=== PATIENT | male | born 1950 | race Caucasian/White ===

== ENCOUNTER 2016-08-28 12:36 | Emergency (ER) | payer BC, MEDICARE ==
--- NOTE | 2016-08-28 14:37 | RAD ---
Indication: Cough, pneumonia. 2 views of the chest including dual energy PA views are reviewed and compared to previous exam dated October 31, 2006. Cardiomegaly is noted. Lung decker appear hyperinflated. Patchy areas of airspace disease in the right base and presumably in the left base consistent with pneumonia are noted. IMPRESSION: Patchy areas of pneumonia in the right base and possibly left lung base. These were not present previously.
[2016-08-28 18:16] VITALS: BP 127/77
--- NOTE | 2016-08-28 20:26 | ED ---
Tiffanie Wild Erika, scribed for Deondre Israel MD on 08/28/16 at 1746 . Respiratory - HPI Summary HPI Summary: Patient is a 65-year-old male presenting to the ED with a CC of cough for 3 months. He reports that he has been diagnosed with bronchitis, and has had a mostly unproductive cough since then, with worsening SOB recently. Cough is aggravated by deep breathing and talking. Patient also reports that he has intermittently had fever/chills. Patient reports that he was put on a 5 day course of Abx 2 weeks ago, which improved symptoms temporarily, but they then returned. Since the Abx, pt has noted decreased appetite and intermittent LUQ pain. Patient denies lightheadedness, dizziness, chest pain, palpitations, nausea, vomiting, diarrhea, and leg swelling. Pt states he had a flu shot 3 months ago. Patient has a Hx stroke, diabetes, and HTN. He takes 5 mg lisinopril and a daily baby aspirin. He denies Hx A Fib and hyperlipidemia. FHx alcohol abuse, diabetes. Patient denies FHx CAD. Patient lives with his , is a former smoker, and does not drink. - History of Current Complaint Chief Complaint: EDUpperRespComplaint Stated Complaint: SOB/COUGH Time Seen by Provider: 08/28/16 16:17 Hx Obtained From: Patient, Family/Education Director - Onset/Duration: Gradual Onset, Lasting Weeks - 90 days, Still Present Timing: Intermittent Episodes Lasting: Current Severity: Moderate Pain Intensity: 1 Character: Cough (Nonproductive), Dyspnea at Rest Aggravating Factor(s): Deep Breaths Alleviating Factor(s): Nothing Associated Signs and Symptoms: SOB - Allergy/Home Medications Allergies/Adverse Reactions: Allergies Allergy/AdvReac Type Severity Reaction Status Date / Time Penicillins [PCN] Allergy Hives Verified 08/28/16 12:37 PMH/Surg Hx/FS Hx/Imm Hx Endocrine/Hematology History: Reports: Hx Diabetes Cardiovascular History: Reports: Hx Hypertension Denies: Hx Hypercholesterolemia Neurological History: Reports: Other Neuro Impairments/Disorders - Stroke Infectious Disease History: No Infectious Disease History: Denies: Traveled Outside the [place] in Last 30 Days - Family History Known Family History: Positive: Diabetes, Other - alcohol abuse - Social History Lives: With Family Alcohol Use: None Hx Substance Use: No Substance Use Type: Reports: None Hx Tobacco Use: Yes Smoking Status (MU): Former Smoker Review of Systems Positive: Fever, Chills Negative: Palpitations, Chest Pain Positive: Shortness Of Breath, Cough Positive: Abdominal Pain, Other - decreased appetite. Negative: Vomiting, Diarrhea, Nausea Negative: Edema All Other Systems Reviewed And Are Negative: Yes Physical Exam - Summary Physical Exam Summary: The patient is obese in no acute distress and in no acute pain. The skin is warm and dry and skin color reflects adequate perfusion. HEENT: The head is normocephalic and atraumatic. The pupils are equal and reactive. The conjunctivae are clear and without drainage. Nares are patent and without drainage. Mouth reveals dry mucous membranes and the throat is without erythema and exudate. The external ears are intact. The ear canals are patent and without drainage. The tympanic membranes are intact. Neck is supple with full range of motion and non-tender. There are no carotid bruits. There is no neck vein distension. Respiratory: Chest is non-tender. Lungs have decreased breath sounds in the bases bilaterally. There is no wheezing or rhonchi. Cardiovascular: Heart is irregular and tachycardic. There is no murmur or rub auscultated. Pulses are symmetrical and equal. Abdomen: The abdomen is soft and non-tender. There are normal bowel sounds heard in all four quadrants and there is no organomegaly palpated. Musculoskeletal: There is no back pain noted. Extremities are non-tender with full range of motion. There is good capillary refill. There is slight pitting edema in the bilateral lower extremities. Neurological: Patient is alert and oriented to person, place and time. The patient has symmetrical motor strength in all four extremities. Cranial nerves are grossly intact. Deep tendon reflexes are symmetrical and equal in all four extremities. Psychiatric: The patient has an appropriate affect and does not exhibit any anxiety or depression. Triage Information Reviewed: Yes Vital Signs On Initial Exam: Initial Vitals Temp Pulse Resp BP Pulse Ox 97.6 F 110 18 146/84 98 08/28/16 12:37 08/28/16 12:37 08/28/16 12:37 08/28/16 12:37 08/28/16 12:37 Vital Signs Reviewed: Yes - Lori Coma Scale Coma Scale Total: 15 Diagnostics - Vital Signs Vital Signs Temp Pulse Resp BP Pulse Ox 08/28/16 15:46 74 21 96 02/24/17 15:44 150/79 08/28/16 14:14 97.5 F 106 20 143/84 99 08/28/16 12:37 97.6 F 110 18 146/84 98 - Laboratory Lab Statement: Any lab studies that have been ordered have been reviewed, and results considered in the medical decision making process. - Radiology CXR Radiology Interpretation Completed By: Radiologist - IMPRESSION: Patchy areas of pneumonia in the right base and possibly left lung base. These were not present previously. - EKG 12:44 Cardiac Rate: Tachycardia - at 114 bpm EKG Rhythm: Atrial Fibrillation - with RVR EKG Interpretation: New onset A Fib. No ST elevation. No STEMI Re-Evaluation - Re-Evaluation First Eval Re-Evaluation Time: 17:53 Comment: Pt counseled again on risks of discharge. Pt declines admission Disposition - Course Assessment/Plan: Patient is a 65 y/o M presenting to the ED with a CC of cough for the past 90 days. He did not improve with a round of Abx two weeks ago. CXR shows patchy areas of pneumonia in the right base and possibly left lung base. Pt was noted to be in A Fib with RVR in the ED, which pt states is new-onset. Patient declines admission after long discussion of risks of discharge, including stroke and . Patient and patient's state that they understand the risks, but that patient does not want to be in the hospital during the weekend. Patient will be discharged with follow up from cardiology and his PCP, and was prescribed levaquin. - Diagnoses Provider Diagnoses: New onset a-fib, Pneumonia Discharge - Discharge Plan Condition: Stable Disposition: HOME Prescriptions: Levofloxacin TAB* [Levaquin TAB*] 750 mg PO DAILY #10 tab Patient Education Materials: Pneumonia (ED), Atrial Fibrillation (ED) Referrals: Amberly Leslie MD [Medical Doctor] - Additional Instructions: Please follow up with cardiology and Dr. Mcfadden. The documentation as recorded by the Tiffanie corbin Erika accurately reflects the service I personally performed and the decisions made by me, Deondre Israel MD.
== END 2016-08-28 18:15 | disposition home or self-care (01) ==
LOC: ED 12:36
DX: I48.91 Unspecified atrial fibrillation (principal); J18.9 Pneumonia, unspecified organism; R05 Cough; R06.02 Shortness of breath; R10.9 Unspecified abdominal pain
CPT/HCPCS: 71020; 93005; 99282

== ENCOUNTER 2016-08-31 09:41 | Inpatient (IN) | payer MEDICARE, BC ==
[2016-08-31] MEDS ORDERED: Aspirin Low Dose CHEW TAB* 81 MG PO ONE (10:36)
[2016-08-31 10:54] LABS: Hematocrit 41 % (42-52); Hemoglobin 13.6 g/dl (14.0-18.0); Mean Corpuscular HGB Conc 33 g/dl (31-36); Mean Corpuscular Hemoglobin 29 pg (27-31); Mean Corpuscular Volume 87 fL (80-94); Mean Platelet Volume 9 um3 (7.4-10.4); Red Blood Count 4.69 10^6/ul (4.0-5.4); Red Cell Distribution Width 14 % (10.5-15); White Blood Count 14.4 10^3/ul (3.5-10.8)
[2016-08-31] MEDS ORDERED: Diltiazem IV* 5 MG/ML 5 ML VIAL (for loading dose/IV Push) (25 MG) IV SLOW PU ONE (11:01)
[2016-08-31] MEDS ORDERED: Albuterol/Ipratropium NEB.SOL* Albuterol 2.5 MG/Ipratropium 0.5 MG 3 ML INH ONE (11:02)
[2016-08-31 11:09] LABS: ALT 10 U/L (7-52); Albumin 3.4 g/dL (3.2-5.2); Alkaline Phosphatase 66 U/L (34-104); BUN/Creatinine Ratio 17.1 (8-20); Blood Urea Nitrogen 13 mg/dL (6-24); CO2 Carbon Dioxide 22 mmol/L (22-32); Calcium 9.9 mg/dL (8.6-10.3); Chloride 91 mmol/L (101-111); EGFR African American 132.4 (>60); EGFR Non-African American 102.9 (>60); Sodium 127 mmol/L (133-145); Total Protein 7.4 g/dL (6.4-8.9)
[2016-08-31 11:11] LABS: Troponin I 0.01 ng/mL (<0.04)
[2016-08-31 11:16] LABS: Glucose 602 mg/dL (70-100)
[2016-08-31] MEDS ORDERED: Iodixanol* (CONTRAST) 320 MG/ML 100 ML SDV IV ONE ×2 (11:18→16:21)
--- NOTE | 2016-08-31 11:21 | RAD ---
INDICATION: Chest pain. COMPARISON: Comparison is made with prior chest x-ray study from October 26, 2016. TECHNIQUE: A portable view of the chest was obtained. FINDINGS: The heart is mildly enlarged and unchanged from the prior exam. There is a small infiltrate at the right lung base which appears similar to the prior study. There is blunting of the right costophrenic angle suggestive of a small pleural effusion. IMPRESSION: SMALL RIGHT BASILAR INFILTRATE AND PLEURAL EFFUSION, UNCHANGED, RECOMMEND FOLLOW-UP CHEST X-RAYS TO RESOLUTION.
[2016-08-31] MEDS ORDERED: cefTRIAXone(*) 1 GM in NS 0.9% 50 ML* 50 ML IVPB ONE (11:26)
[2016-08-31] MEDS ORDERED: Azithromycin IV(*) 500 MG in NS 0.9% 250 ML* 250 ML IVPB ONE (11:26)
[2016-08-31] MEDS ORDERED: Insulin REGULAR(*) 1 UNITS UNIT SUBCUT ONE (11:27)
[2016-08-31 12:17] LABS: Magnesium 1.6 mg/dL (1.9-2.7)
[2016-08-31] MEDS ORDERED: Dextrose 50% Syringe 50 ML* 25 GM/50 ML SYRINGE IV PUSH PRN (12:19)
[2016-08-31] MEDS ORDERED: Magnesium Sulfate 2 GM IV* 2 GM/50 ML BAG IVPB ONE (12:24)
[2016-08-31] MEDS ORDERED: Diltiazem TAB* 30 MG PO ONE (12:26)
[2016-08-31] MEDS ORDERED: NS 0.9% 1000 ML* 1,000 ML IV ONE (12:31)
[2016-08-31] MEDS ORDERED: Insulin LISPRO* 1 UNITS UNIT SUBCUT SCH ×2 (13:00→16:30)
--- NOTE | 2016-08-31 13:25 | RAD ---
INDICATION: Chest pain. Short of breath. Evaluate for pulmonary embolus. . COMPARISON: Chest x-ray August 31, 2016 TECHNIQUE: Axial source images were obtained from the thoracic inlet to the hemidiaphragms following administration of [address] angiographic technique was utilized. Coronal and sagittal reconstructed images were acquired. CHEST FINDINGS: Neck/thyroid: The visualized neck to include the thyroid appear normal. Chest wall: There are no acute abnormalities of the bony thorax or chest wall. There is no supraclavicular, infraclavicular, or axillary lymphadenopathy. Lungs : There are indeterminate masslike lesions bilaterally. The dominant lesions are in the right infrahilar region where a centrally located parenchymal mass is noted measuring up to 3 cm. There is also left upper lobe mass measuring 2.3 cm in transverse dimension There are additional left-sided lesions which are 1 cm or smaller. The dominant lesion on the right is in the right middle lobe and measures 1.8 cm. Cardiomediastinal structures: There is no CT evidence of acute pulmonary embolic disease. There is hepatomegaly. There is a moderate-sized pericardial effusion There is no evidence of aortic aneurysm or dissection.. There is mild distal adenopathy with a 1.4 cm tracheal lymph node and additional lymph nodes approaching 1 cm. There are hilar lymph nodes measuring up to 1.2 cm. The esophagus appears normal. Pleura : Small right-sided pleural effusion. Other: Limited views the upper abdomen show a small amount of ascites and there is gastrohepatic and periportal lymphadenopathy measuring up to 2.2 cm. There is mild retrocrural lymph node enlargement. IMPRESSION: 1. No CT evidence of acute pulmonary embolic disease. 2. Multiple masslike pulmonary parenchymal lesions. Inflammatory and neoplastic etiologies are possibilities. 3. Right-sided pleural effusion 4. Mild mediastinal lymphadenopathy. 5. Cardiomegaly and pericardial effusion. 6. Infradiaphragmatic lymphadenopathy
[2016-08-31 13:31] LABS: Troponin I 0.01 ng/mL (<0.04)
[2016-08-31] MEDS ORDERED: Insulin LISPRO* 1 UNITS UNIT SUBCUT ONE (14:43)
[2016-08-31] MEDS: Insulin LISPRO* 1 UNITS UNIT SUBCUT SCH ×3 (15:27→22:03)
[2016-08-31 17:05] LABS: Troponin I 0.02 ng/mL (<0.04)
[2016-08-31 17:11] LABS: Calcium 9.5 mg/dL (8.6-10.3); EGFR African American 158.6 (>60); EGFR Non-African American 123.3 (>60); Potassium 4.4 mmol/L (3.5-5.0)
--- NOTE | 2016-08-31 17:33 | RAD ---
INDICATION: Ascites noted on CT chest exam of the same date. New onset atrial fibrillation. Uncontrolled diabetes. COMPARISON: None. TECHNIQUE: Multidetector CT images were obtained from the lung bases to the ischial tuberosities with 100 mL Visipaque 320 IV and oral contrast. Multiplanar reformation. REPORT: Large pericardial effusion and small dependent RIGHT pleural effusion are unchanged compared with the earlier exam of the same date. Proportional RIGHT basilar atelectasis. Decreased density of the liver consistent with fatty infiltration. No focal hepatic lesions or biliary dilatation. Moderately atrophic pancreas. Small volume of pericholecystic fluid without additional CT abnormality of the gallbladder. Unremarkable spleen. Small splenule approximating the caudal aspect of the spleen. Negative for CT abnormality of the upper GI, small bowel, or infra cecal appendix. Moderate diverticulosis of the sigmoid colon without findings of diverticulitis. Small volume of nonloculated diffuse ascites. Negative for free air or hernias. Postsurgical change of probable bilateral inguinal hernia repair. Thickening of the bilateral adrenal glands while nonspecific is most suspicious for hyperplasia. Small volume of pyelographic phase contrast from the earlier contrast-enhanced CT of the same date. Symmetric nephrograms and pyelograms. No suspicious focal renal lesions or hydronephrosis. Bilateral ureteral jets visualized at the urinary bladder. Macroscopic calcification at the prostate gland. Symmetric seminal vesicles. Celiac axis and emre hepatis adenopathy measuring up to 1.6 cm short axis reference axial image 20 of 94. Upper normal 1.3 cm short axis portal caval lymph node. Infrarenal LEFT periaortic 1.1 cm short axis lymph node. Atherosclerotic plaque. Negative for aortoiliac aneurysm. Physiologic distention of the IVC. Negative for retroperitoneal hematoma. Postsurgical change of L4-L5 LEFT laminectomy. Advanced L4-L5 degenerative spondylosis. No suspicious focal osseous lesions evident. IMPRESSION: 1. Large pericardial effusion and small dependent RIGHT pleural effusion are unchanged compared with the earlier exam of the same date. Proportional RIGHT basilar atelectasis. 2. Fatty obliteration of the liver. 3. Small volume of nonloculated diffuse ascites. Nonspecific small volume of pericholecystic fluid. If there is clinical concern for primary gallbladder pathology a RIGHT upper quadrant ultrasound would be suggested. 4. Thickening of the bilateral adrenal glands while nonspecific is most suspicious for hyperplasia. Consider reassessment with noncontrast CT in approximate 3 months time. 5. Mild retroperitoneal lymphadenopathy most prominent at the celiac axis and emre hepatis.
[2016-08-31] MEDS: NS 0.9% 1000 ML* 1,000 ML IV SCH (18:15)
[2016-08-31] MEDS: Diltiazem TAB* 30 MG PO SCH ×2 (18:20→23:13)
--- NOTE | 2016-08-31 20:41 | HP ---
HISTORY AND PHYSICAL:* ADDENDUM: DATE OF ADMISSION: 08/31/16 Mr. Hernández is a 65-year-old male with a history of diabetes who was diagnosed with atrial fibrillation on 08/28/16 when he came into the ED for evaluation of shortness of breath and cough. He requested to leave the emergency department without being evaluated for admission at that point. He comes back with the same complaints. Once again, he is in atrial fibrillation with rapid ventricular response. His glucose level is also 600. He is going to be admitted to a telemetry monitored bed. For further details of the patient's presentation and plan, please see history and physical dictated by Radha Oconnor NP, on 08/31/16 with which I agree. [id number]/[facility] #: [id number] ISAURA
--- NOTE | 2016-08-31 20:49 | HP ---
ATTENDING PHYSICIAN ADDENDUM NOW INCLUDED ON THIS REPORT HOSPITAL MEDICINE HISTORY AND PHYSICAL: DATE OF ADMISSION: 08/31/16 PRIMARY CARE PHYSICIAN: Dr. Deb Mcfadden. ATTENDING PHYSICIAN: Dr. Minoo Kulkarni* (dictation provided by Radha Oconnor NP) . CHIEF COMPLAINT: Shortness of breath and cough. HISTORY OF PRESENT ILLNESS: Mr. Hernández is a 65-year-old male with a past medical history of stroke 10 years ago; diabetes; on oral meds only; hypertension; new- onset AFib diagnosed on 08/28/16, who presents today to the hospital with persistent cough and shortness of breath. Mr. Hernández states that he began feeling unwell about 3 months ago. He has had cough and shortness of breath. During that time, he was diagnosed with bronchitis and started on 5- day course of antibiotics approximately 2 weeks ago. He states with antibiotics , he was feeling better until mid last week when he began to feel suddenly much more short of breath and have more significant cough. He reports that he cannot lie flat due to cough and shortness of breath and therefore, his sleep has been greatly impaired. He also reports some dizziness. He reports increasing dyspnea on exertion and finds it very difficult to walk up the stairs in his home now. On 08/28/16, the patient came to the emergency room for evaluation. At that time, he had a chest x-ray which showed concern for pneumonia and he was found to be in new onset atrial fibrillation with rapid ventricular response. The patient was counseled about the risks of leaving, but the patient felt that he would be better served going home and was discharged on Levaquin. In the intervening couple of days, Mr. Hernández states that he has continued to have shortness of breath, dyspnea on exertion, and cough, and he returned today to be reevaluated. In the emergency room, Mr. Hernández had a chest x-ray which showed a right lower lobe infiltrate persistent from previous. He has a white blood cell count of 14.4. He has hyponatremia with a sodium of 127. He has a glucose of 602. His lactic acid is 4.1, magnesium 1.6, potassium 4.1. He is noted to be in atrial fibrillation with heart rate of 130s; however, he was given IV dose of Cardizem and now, his heart rate is approximately 90. PAST MEDICAL HISTORY: 1. History of stroke 10 years ago with no residual. 2. Type 2 diabetes, non-insulin dependent. 3. Hypertension. 4. New-onset AFib, diagnosed 08/28/16. 5. Multiple back surgeries. MEDICATIONS: 1. Lisinopril 5 mg p.o. daily. 2. Aspirin 81 mg p.o. daily. 3. Metformin 1000 mg p.o. b.i.d. 4. Glipizide 10 mg p.o. b.i.d. 5. Levaquin 750 mg p.o. daily, prescribed on 08/28/16. ALLERGIES: To PENICILLIN. FAMILY HISTORY: The patient reports his mom related to pancreatic cancer and dad related to cirrhosis. SOCIAL HISTORY: The patient is a former smoker. He quit 10 years ago. He is also a former drinker, but quit approximately 30 years ago. No report of drug use. The patient lives with his who is the healthcare proxy. REVIEW OF SYSTEMS: A 14-point review of systems was completed with Mr. Hernández and all those not mentioned above were negative. PHYSICAL EXAMINATION GENERAL: Mr. Hernández is sitting up in the bed. He is in no acute distress. He is calm and cooperative to my examination. VITAL SIGNS: Heart rate 97, respiratory rate 14, O2 saturation 99% on room air , blood pressure 127/85, temperature 96.4. LUNGS: Clear to auscultation bilaterally with no accessory muscle use and good aeration. HEART: S1, S2. No murmur, rub, or gallop and regular. ABDOMEN: Soft, nontender with bowel sounds positive x4. EXTREMITIES: No cyanosis or edema. NEURO: He is alert, he is oriented x3. He moves all extremities equally. There is no facial asymmetry or focal weakness. Extraocular movements are intact. SKIN: Intact. IAGNOSTIC STUDIES/LAB DATA: WBC 14.4, hemoglobin 13.6, hematocrit 41, platelet count 424. Sodium 127, potassium 4.1, chloride 91, serum bicarbonate 22, BUN 13, creatinine 0.76, glucose 602, lactic acid 4.1, magnesium 1.6. Troponin 0.01. Chest x-ray shows small right basilar infiltrate. EKG shows atrial fibrillation with a heart rate of 140. ASSESSMENT AND PLAN: Mr. Hernández is a 65-year-old male with a past medical history of stroke 10 years ago, diabetes that is non-insulin dependent, and hypertension, who presents today to the emergency room with concern for shortness of breath and cough. He had been to the emergency room on 08/28/16 at which time he was diagnosed with pneumonia and new-onset atrial fibrillation with rapid ventricular response. He declined to stay in the hospital and returns today out of concern for persistent shortness of breath and cough. Our plan is for inpatient admission as I expect his length of stay to be greater than 2 days for the followin. Atrial fibrillation with rapid ventricular response: The patient has responded well to Cardizem intravenously. I will continue with oral Cardizem 30 mg p.o. q.6 hours with hold parameters. I have discussed the risks and benefits of anticoagulation and stroke prevention with Mr. Hernández and his . Plan to start Xarelto now. I suspect that his risk factors for atrial fibrillation are persistent bronchitis and now pneumonia. He will be further evaluated with a transthoracic echocardiogram. 2. Pneumonia: The patient has a persistent infiltrate and worsening leukocytosis. Plans for switching from Levaquin to ceftriaxone and azithromycin. In addition, the patient will have a CT scan of the chest now to rule out any alternative etiology for shortness of breath and cough including pulmonary embolism. 3. Hyperglycemia with history of type 2 diabetes: The patient states he takes his medications regularly, but then he does not take his blood sugar at home and that his hemoglobin A1c has been elevated recently. Plan to provide the patient with lispro sliding scale insulin q.4 hours until it is under better control and then, we will switch to as needed with meals. I will plan to hold metformin and glipizide during the inpatient period. Plan to check hemoglobin A1c. The patient will also have a consistent carbohydrate diet. 4. Hypertension: Plan to decrease lisinopril to 2.5 mg daily. Now, the patient will likely be on an alternate agent such as Cardizem for his atrial fibrillation. 5. DVT prophylaxis with Xarelto. 6. Code status is full code. 7. Disposition to telemetry. TIME SPENT: Approximately 60 minutes was spent on the admission of this patient , more than half time spent with the patient at the bedside reviewing the events leading up to this hospitalization, performing the physical examination, and reviewing the plan of care. RADHA OCONNOR NP ADDENDUM: DATE OF ADMISSION: 08/31/16 Mr. Hernández is a 65-year-old male with a history of diabetes who was diagnosed with atrial fibrillation on 08/28/16 when he came into the ED for evaluation of shortness of breath and cough. He requested to leave the emergency department without being evaluated for admission at that point. He comes back with the same complaints. Once again, he is in atrial fibrillation with rapid ventricular response. His glucose level is also 600. He is going to be admitted to a telemetry monitored bed. For further details of the patient's presentation and plan, please see history and physical dictated by Radha Oconnor NP, on 08/31/16 with which I agree. MINOO KULKARNI MD CC: Dr. Deb Mcfadden * [id number]/[facility] #: [id number]/[facility] #: [id number] [place]
[2016-08-31] MEDS ORDERED: Insulin GLARGINE(*) 1 UNITS UNIT SUBCUT SCH (21:00)
--- NOTE | 2016-08-31 22:14 | CONS ---
CARDIOLOGY CONSULTATION: DATE OF CONSULT: 08/31/16 INDICATION FOR CONSULTATION: Cough, shortness of breath, pericardial effusion. HISTORY OF PRESENT ILLNESS: The patient is a 65-year-old gentleman with a history of hypertension and diabetes, who was admitted to the hospital because of cough and shortness of breath. The patient states for the past 2 months or so, he has had a dry, nonproductive cough, and shortness of breath. The patient states that his cough has been present. It has been mildly bothersome to him. It has been nonproductive. The patient was seen by his primary care physician who thought he had viral bronchitis. The patient states that 5 days ago, he started having a significant increase in his shortness of breath. He said he was having shortness of breath just walking to the end of the driveway and back, which he is usually not symptomatic for him. The patient denied any orthopnea. He denied any palpitations. He denied any chest pain. Ultimately, the patient went to the emergency room to get a chest x-ray. While he was in the emergency room, he was found to have an irregular rhythm and found to be in atrial fibrillation. The patient refused admission to the hospital at that time and went home. After discussing the situation with his daughter, who is a registered nurse, the patient came back to the emergency room this morning for evaluation. The patient had a CT scan of his chest, which showed evidence of pneumonia. Also, clearly had a large circumferential pericardial effusion and significant perihilar lymphadenopathy. The patient was admitted to the hospital for his atrial fibrillation and his pericardial effusion. The patient underwent an echocardiogram which showed normal LV size and systolic function. No significant valvular abnormality. He had a tngksyoz-ag-pkmud circumferential pericardial effusion. There was no evidence of hemodynamic compromise. PAST MEDICAL HISTORY: Significant for hypertension, diabetes, CVA in 2006. OUTPATIENT MEDICATIONS: 1. Glipizide 10 mg b.i.d. 2. Lisinopril 5 mg a day. 3. Aspirin 81 mg a day. 4. Metformin 1000 mg b.i.d. ALLERGIES: PENICILLIN. FAMILY HISTORY: Mother at age 93. She had a history of carotid disease. Father had a history of alcohol abuse and of liver cirrhosis. SOCIAL HISTORY: He is . He has 2 children. He is a previous smoker. He quit in 2006. Rare alcohol intake. He works as a college sports coach. PHYSICAL EXAM: Height is 5 feet 7 inches and weight is 183 pounds. Heart rate is 97, blood pressure 103/51, respiratory rate is 14, oxygen saturation 100% on room air. Sclerae anicteric. Oropharynx is pink without erythema. Carotids are 2+ without bruits. JVD is normal. Thyroid is normal. Cardiac Exam: Distant heart sounds, S1, S2 without any murmurs, rubs, or gallops. His heart rate is irregular. PMI is normal. Lungs: Clear to auscultation bilaterally. There is no dullness to percussion. Abdomen: Soft, nontender, and nondistended with normoactive bowel sounds. There is no obvious hepatosplenomegaly. There is no tenderness to palpation. Extremities: Show 1 + edema. He has 2+ pulses throughout. The patient is awake, alert, and oriented. He moves all 4 extremities equally. DIAGNOSTIC STUDIES/LAB DATA: CBC: White count 14.4, hemoglobin 13, hematocrit 41, platelet count 424. Sodium 127, BUN 13, creatinine 0.7. AST and ALT within normal limits. BNP is 47. Total cholesterol 179, LDL 106, HDL is 53. TSH 1.03. EKG demonstrates atrial fibrillation with a heart rate of 140. IMPRESSION: This is a 65-year-old gentleman with dry nonproductive cough and increased shortness of breath. In the emergency room, the patient was found to have atrial fibrillation. The patient ultimately had a CAT scan of his chest, which showed a large circumferential pericardial effusion. The pericardial effusion does not show any evidence of tamponade on his echocardiogram nor is that present on his physical exam. For now, the major issue is the presence of the pericardial effusion. My guess is that it is a reactionary to his inflammatory process of his lungs. The patient does have a large lymph node in his chest, which could represent malignancy. Currently, the patient has no evidence of tamponade on physical exam or echocardiogram. For now, my recommendation is continue with rate control of his atrial fibrillation. The patient will be started on anticoagulation once his diagnostic workup is completed. The patient will have an evaluation by Dr. Rodriguez and may be necessary to do a biopsy either by bronchoscopy or through his abdomen because of his enlarged lymph node. I do not think, the patient needs a pericardiocentesis at this time, but he may need it for diagnostic purposes. I will continue to follow the patient during his hospitalization. CC: Dr. Deb Mcfadden; Dr. Rodriguez * [id number]/[facility] #: [id number] [facility]ITAL[facility]
--- NOTE | 2016-08-31 23:13 | CONS ---
PULMONARY CONSULTATION REPORT: DATE OF CONSULTATION: 08/31/16 CONSULTATION REQUESTED BY: Dr. Minoo Kulkarni. REASON FOR CONSULTATION: Evaluation of CT chest abnormality. CHIEF COMPLAINT: The patient admitted for evaluation of cough for 3 months. HISTORY OF PRESENT ILLNESS: The patient is a 65-year-old male, former smoker, with a history of hypertension, CVA, and diabetes. The patient was brought into the ED for evaluation of cough for 3 months. The patient was in the ED 3 days ago for the same complaints. The patient was also noted to be in AFib with RVR at that time. The patient declined any further evaluation and left AMA. The patient returned back to the ED for similar complaints yesterday. The patient was seen and examined by me at bedside earlier today. The patient reported cough over the past 3 months. The cough is dry in nature, had bronchitis prior to the cough 3 months ago. The patient also had received flu shot around the same time. The patient denies significant shortness of breath. Cough is aggravated by deep breathing and talking. He has frequent coughing spells. The patient also reports intermittent fevers and chills. The patient was treated with antibiotics as outpatient with slight improvement in symptoms and returned after he completed the course of antibiotics. The patient also noted decreased appetite and intermittent left upper quadrant pain. The patient denied chest pain, palpitations, dizziness, nausea, vomiting, diarrhea, and leg swelling. Further investigation during the current hospitalization revealed multiple pulmonary pattern lesions, largest measuring up to 3 cm in the right lung. The patient also noted to have left upper lobe mass measuring 2.3 cm and an additional left-sided lesion measuring 1.0 cm and right middle lobe lesion measuring 1.8 cm. The patient also noted to have pretracheal and hilar adenopathy. The patient also noted to have small right-sided pleural effusion. The patient also noted to have cardiomegaly and tzhpnrbd-eq-yajgg pericardial effusion without tamponade effect. The patient also noted to have enlarged lymph nodes in the gastrohepatic and periportal region. The patient had echocardiogram, which showed evidence of etletige-lt-mpqja effusion without tamponade. The patient was scheduled for abdominal CT scan. The patient also noted to have elevated white count at 14 with a left shift. The patient is also found to have elevated lactic acid at 4.4 with normal troponins. I personally reviewed CT scan of the chest performed on this admission. PAST MEDICAL HISTORY: 1. Hypertension. 2. Cerebrovascular accident. 3. Diabetes. 4. The patient is noted to be in AFib during this current admission. MEDICATIONS AT HOME: 1. Aspirin. 2. Lisinopril 5 mg. ALLERGIES: PENICILLIN. FAMILY HISTORY: Diabetes and alcohol abuse. SOCIAL HISTORY: Lives at home with family, former smoker, no alcohol or drug abuse. REVIEW OF SYSTEMS: All 14 systems reviewed and as per HPI. PHYSICAL EXAM: The patient is sitting up in chair, in no apparent distress. Vital Signs: Temperature 97.8, pulse 86 beats per minute, respiratory rate 24 per minute, O2 sat 98% on 2 L, blood pressure 103/51. HEENT: Pupils are equal and reactive to light, mucous membranes moist. Lungs: Good air entry bilaterally. Decreased breath sounds at bases, no wheezing or rhonchi. Cardiovascular: Irregular. No murmur or rubs. Distant heart sounds. Abdomen: Soft, nontender. Bowel sounds present. Musculoskeletal: Normal range of motion. Neurologic: Alert, awake, oriented x3. No focal deficits. Integumentary: No rash or bruises. DIAGNOSTIC STUDIES/LAB DATA: Hemoglobin 13.6, hematocrit 41, white count 14.4, platelet count 424. Sodium 133, potassium 4.4, chloride 97, bicarb 27, BUN 13, creatinine 0.65, glucose 288, lactate 4.4, troponin within normal limits. CT scan and echocardiogram as described above in HPI. IMPRESSION AND RECOMMENDATIONS: 65-year-old male, former smoker, with dry cough over the past 3 months, did not improve with outpatient antibiotics with evidence of patchy opacities and mass like lesions bilaterally along with lymphadenopathy, evidence of cpnqruap-cz-jnapl right pleural effusion without tamponade effect, atrial fibrillation with RVR and evidence of mediastinal and intraabdominal lymphadenopathy. Differentials include malignant process including primary lung cancer versus lymphoma versus intraabdominal malignancy versus inflammatory process versus infectious etiology. If the patient has primary lung cancer, he would be upstaged tro stage-4 if pericardial effusion is positive. He might benefit from pericardicentesis If intraabdominal pathology is found, he might benefit from CT-guided biopsy of most accessible node. If above procedures are more complicated than bronchoscopy, will schedule him for bronchoscopy and EBUS on 09/02/16. I have discussed above with Dr. Villarreal who is in agreement. Continue with antibiotics as described. Continue with O2 supplementation. Continue with bronchodilators and oxygen supplementation. Thank you for allowing me to participate in the care of your patient. Will follow up with you. [id number]/[facility] #: [id number] ISAURA
[2016-09-01] MEDS: NS 0.9% 1000 ML* 1,000 ML IV SCH (02:20)
[2016-09-01] MEDS ORDERED: Acetaminophen TAB* 325 MG PO PRN (02:25)
[2016-09-01] MEDS: oxyCODONE TAB* 5 MG TAB PO PRN ×2 (02:38→06:41)
[2016-09-01] MEDS: Insulin LISPRO* 1 UNITS UNIT SUBCUT SCH ×2 (02:38→06:12)
[2016-09-01 05:06] LABS: Hematocrit 40 % (42-52); Hemoglobin 13.2 g/dl (14.0-18.0); Mean Corpuscular HGB Conc 33 g/dl (31-36); Mean Corpuscular Hemoglobin 28 pg (27-31); Mean Corpuscular Volume 86 fL (80-94); Mean Platelet Volume 8 um3 (7.4-10.4); Red Blood Count 4.66 10^6/ul (4.0-5.4); Red Cell Distribution Width 14 % (10.5-15); White Blood Count 18.3 10^3/ul (3.5-10.8)
[2016-09-01 05:07] LABS: Comments Flag Yes
[2016-09-01 05:19] LABS: BUN/Creatinine Ratio 33.8 (8-20); Calcium 9.4 mg/dL (8.6-10.3); EGFR African American 150.5 (>60); Potassium 3.5 mmol/L (3.5-5.0)
[2016-09-01] MEDS: Diltiazem TAB* 30 MG PO SCH (05:19)
--- NOTE | 2016-09-01 08:07 | ED ---
Benitez Wild Adam, scribed for Hermes Tristan MD on 08/31/16 at 1048 . Shortness of Breath - HPI Summary HPI Summary: Pt is a 65 year old male presenting with SOB. He states that walking from the living room to the bathroom he has been gasping for air. In May 2016 he developed a dry cough which his doctor told him would probably only last 3 months. However the cough has persisted despite trying antibiotics. Over the past few days the pt has also developed the SOB with associated pain. He went to the doctor 3 days ago and was diagnosed with A Fib. He did not have a chest scan done. Pt also reports BLE edema over the past few days as well as occasional chills. He denies vomiting, diarrhea, hemoptysis. He sleeps on 1 pillow. Pt quit smoking 10 years ago. - History of Current Complaint Chief Complaint: EDDysrhythmPalp Time Seen by Provider: 08/31/16 10:16 Hx Obtained From: Patient Onset/Duration: Gradual Onset, Lasting Days, Still Present Timing: Constant Current Severity: Moderate Dyspnea At: Exertion Aggrevating Factors: Nothing Alleviating Factors: Nothing Associated Signs & Symptoms: Cough (Nonproductive), Chest Pain w/Cough, Edema - Allergy/Home Medications Allergies/Adverse Reactions: Allergies Allergy/AdvReac Type Severity Reaction Status Date / Time Penicillins [PCN] Allergy Hives Verified 08/28/16 12:37 Home Medications: Home Medications Aspirin EC Low Dose* [Ecotrin EC Low Dose*] 81 mg PO DAILY 08/31/16 [History Confirmed 08/31/16] Lisinopril TAB* [Prinivil TAB*] 5 mg PO DAILY 08/31/16 [History Confirmed ] glipiZIDE TAB.XL* [Glucotrol XL*] 10 mg PO BID 08/31/16 [History Confirmed 08/31] metFORMIN* [Glucophage*] 1,000 mg PO BID 08/31/16 [History Confirmed 08/31/16] PMH/Surg Hx/FS Hx/Imm Hx Endocrine/Hematology History: Reports: Hx Diabetes Cardiovascular History: Reports: Hx Hypertension Denies: Hx Hypercholesterolemia Neurological History: Reports: Other Neuro Impairments/Disorders - Stroke Infectious Disease History: No Infectious Disease History: Denies: Traveled Outside the [place] in Last 30 Days - Family History Known Family History: Positive: Diabetes, Other - alcohol abuse - Social History Occupation: Employed Full-time Lives: With Family - Alcohol Use: None Hx Substance Use: No Substance Use Type: Reports: None Hx Tobacco Use: Yes Smoking Status (MU): Former Smoker Review of Systems Positive: Chills. Negative: Fever Negative: Erythema Negative: Sore Throat Positive: Chest Pain Positive: Shortness Of Breath, Cough Negative: Abdominal Pain, Vomiting, Nausea Negative: dysuria, hematuria Positive: Edema. Negative: Myalgia Negative: Rash All Other Systems Reviewed And Are Negative: Yes Physical Exam - Summary Physical Exam Summary: Constitutional: Well-developed, Well-nourished, Alert. (-) Distressed Skin: Warm, Dry HENT: Normocephalic; Atraumatic Eyes: Conjunctiva normal Neck: Musculoskeletal ROM normal neck. (-) JVD, (-) Stridor, (-) Tracheal deviation Cardio: Tachycardia. Pulmonary/Chest wall: Effort normal. (-) Respiratory distress, (-) Wheezes, (-) Rales Abd: Soft, (-) Tenderness, (-) Distension, (-) Guarding, (-) Rebound Musculoskeletal: (-) Edema Lymph: (-) Cervical adenopathy Neuro: Alert, Oriented x3 Psych: Mood and affect Normal Triage Information Reviewed: Yes Vital Signs On Initial Exam: Initial Vitals Temp Pulse Resp BP Pulse Ox 96.4 F 110 16 141/88 99 08/31/16 09:47 08/31/16 09:47 08/31/16 09:47 08/31/16 09:47 08/31/16 09:47 Vital Signs Reviewed: Yes Diagnostics - Vital Signs Vital Signs Temp Pulse Resp BP Pulse Ox 08/31/16 09:47 96.4 F 110 16 141/88 99 - Laboratory Result Diagrams: 08/31/16 10:40 08/31/16 11:40 Lab Statement: Any lab studies that have been ordered have been reviewed, and results considered in the medical decision making process. - Radiology CXR Radiology Interpretation Completed By: Radiologist - IMPRESSION: SMALL RIGHT BASILAR INFILTRATE AND PLEURAL EFFUSION, UNCHANGED, RECOMMEND FOLLOW-UP CHEST X- RAYS TO RESOLUTION. - CT CHEST/THORAX CTA CT Interpretation Completed By: Radiologist - IMPRESSION: 1. No CT evidence of acute pulmonary embolic disease. 2. Multiple masslike pulmonary parenchymal lesions. Inflammatory and neoplastic etiologies are possibilities. 3. Right- sided pleural effusion 4. Mild mediastinal lymphadenopathy. 5. Cardiomegaly and pericardial effusion. 6. Infradiaphragmatic lymphadenopathy - EKG 10:06 Cardiac Rate: Tachycardia - 141 BPM EKG Rhythm: Atrial Fibrillation - Additional Comments Diagnostic Additional Comments: Glucose - 602 Lactic Acid - 4.1 Course/Dx - Diagnoses Provider Diagnoses: Atrial fibrillation with RVR, Uncontrolled diabetes Discharge - Discharge Plan Condition: Stable Disposition: ADMITTED TO [facility] documentation as recorded by the Benitez corbin Adam accurately reflects the service I personally performed and the decisions made by , Hermes Tristan MD.
[2016-09-01] MEDS ORDERED: Aspirin EC Low Dose* 81 MG TAB.EC PO SCH (09:00)
[2016-09-01] MEDS ORDERED: Rivaroxaban TAB(*) 20 MG TAB PO SCH (09:00)
[2016-09-01] MEDS ORDERED: Lisinopril TAB* 5 MG PO SCH (09:00)
[2016-09-01] MEDS ORDERED: Diltiazem CD CAP* 180 MG PO SCH (10:00)
[2016-09-01] MEDS ORDERED: Insulin LISPRO* 1 UNITS UNIT SUBCUT SCH (11:30)
[2016-09-01] MEDS ORDERED: cefTRIAXone VIAL(*) 1,000 MG in NS 0.9% 50 ML* 50 ML IVPB SCH (12:00)
[2016-09-01] MEDS ORDERED: Azithromycin IV(*) 500 MG in NS 0.9% 250 ML* 250 ML IVPB SCH (12:00)
[2016-09-01 12:46] VITALS: BP 136/88
[2016-09-01] MEDS ORDERED: Insulin GLARGINE(*) 1 UNITS UNIT SUBCUT SCH ×2 (13:00→21:00)
[2016-09-01] MEDS ORDERED: Ondansetron INJ* 2 MG/ML VIAL IV PRN (13:09)
[2016-09-01] MEDS ORDERED: Diazepam TAB(*) 5 MG PO ONE (13:45)
[2016-09-01] MEDS ORDERED: Benzonatate CAP* 100 MG PO SCH (14:00)
--- NOTE | 2016-09-01 14:20 | PN ---
Subjective Date of Service: 09/01/16 Interval History: Dry cough. Sick for months. Nausea last 2 weeks. No weight change. No bowel c/o. Not SOB. Pain L abdomen, mild. Objective Active Medications: Acetaminophen (Tylenol Tab*) 650 mg PO Q6H PRN PRN Reason: FEVER/PAIN Aspirin (Aspirin Ec Low Dose*) 81 mg PO DAILY [facility] Last Admin: 09/01/16 10:18 Dose: 81 mg Benzonatate (Tessalon Cap*) 200 mg PO TID [facility] Last Admin: 09/01/16 14:00 Dose: 200 mg Dextrose (D50w Syringe 50 Ml*) 12.5 gm IV PUSH .FOR FS < 60 - SS PRN PRN Reason: FS < 60 Diltiazem HCl (Cardizem Cd Cap*) 180 mg PO DAILY [facility] Last Admin: 09/01/16 11:25 Dose: 180 mg Ceftriaxone Sodium 1,000 mg/ (Sodium Chloride) 50 mls @ 200 mls/hr IVPB Q24H [facility] Last Admin: 09/01/16 11:26 Dose: 200 mls/hr Azithromycin 500 mg/ Sodium (Chloride) 250 mls @ 250 mls/hr IVPB Q24H [facility] Last Admin: 09/01/16 12:26 Dose: 250 mls/hr Insulin Glargine (Lantus(*)) 20 units SUBCUT Q24H [facility] Insulin Human Lispro (Humalog*) 0 units SUBCUT ACHS [facility] PRN Reason: Protocol Last Admin: 09/01/16 12:24 Dose: 8 units Lisinopril (Prinivil Tab*) 2.5 mg PO DAILY [facility] Last Admin: 09/01/16 10:18 Dose: 2.5 mg Ondansetron HCl (Zofran Inj*) 4 mg IV Q4H PRN PRN Reason: NAUSEA Oxycodone HCl (Roxycodone Tab*) 5 mg PO Q4H PRN PRN Reason: PAIN Last Admin: 09/01/16 06:41 Dose: 5 mg Vital Signs 08/31/16 08/31/16 08/31/16 14:42 14:43 14:46 Temperature Pulse Rate 93 91 Respiratory Rate Blood Pressure 135/70 (mmHg) O2 Sat by Pulse 94 99 Oximetry 08/31/16 08/31/16 08/31/16 15:00 15:30 16:00 Temperature Pulse Rate 88 90 88 Respiratory Rate Blood Pressure 143/83 144/85 138/83 (mmHg) O2 Sat by Pulse 100 100 100 Oximetry 08/31/16 08/31/16 08/31/16 18:09 18:10 19:16 Temperature Pulse Rate 118 Respiratory 18 Rate Blood Pressure 124/67 135/77 (mmHg) O2 Sat by Pulse Oximetry 08/31/16 08/31/16 08/31/16 19:45 21:05 23:51 Temperature 99.2 F 98.2 F Pulse Rate 76 54 Respiratory 16 18 16 Rate Blood Pressure 132/76 88/67 (mmHg) O2 Sat by Pulse 99 98 Oximetry 08/31/16 09/01/16 09/01/16 23:55 02:38 03:37 Temperature 98.7 F Pulse Rate 105 Respiratory 18 16 Rate Blood Pressure 110/72 130/74 (mmHg) O2 Sat by Pulse 97 Oximetry 09/01/16 09/01/16 09/01/16 04:38 06:41 07:45 Temperature 97.5 F Pulse Rate 91 Respiratory 18 16 16 Rate Blood Pressure 134/68 (mmHg) O2 Sat by Pulse 98 Oximetry 09/01/16 09/01/16 09/01/16 08:02 08:41 11:04 Temperature 97.2 F Pulse Rate 101 Respiratory 16 16 16 Rate Blood Pressure 136/88 (mmHg) O2 Sat by Pulse 99 Oximetry 09/01/16 14:00 Temperature Pulse Rate Respiratory 18 Rate Blood Pressure (mmHg) O2 Sat by Pulse Oximetry Oxygen Devices in Use Now: Nasal Cannula Appearance: Alert, sitting on the edge of his bed. In good spirits. looks comfortable. Eyes: No Scleral Icterus Ears/Nose/Mouth/Throat: Clear Oropharnyx, Mucous Membranes Moist Neck: NL Appearance and Movements; NL JVP, No Thyroid Enlargement, Masses Respiratory: Symmetrical Chest Expansion and Respiratory Effort, Clear to Auscultation, Clear to Percussion Cardiovascular: NL Sounds; No Murmurs; No JVD, RRR, No Edema, - Abdominal: NL Sounds; No Tenderness; No Distention, No Hepatosplenomegaly, - Extremities: No Edema, No Clubbing, Cyanosis, - Skin: No Rash or Ulcers, No Nodules or Sclerosis, - Neurological: Alert and Oriented x 3, NL Sensation Result Diagrams: 09/01/16 04:30 09/01/16 04:30 Assess/Plan/Problems-Billing Assessment: - Patient Problems (1) Pericardial effusion Current Visit: Yes Status: Acute Code(s): I31.3 - PERICARDIAL EFFUSION ( NONINFLAMMATORY) SNOMED Code(s): 719400172 Comment: Dr. Villarreal to do pericardiocentesis on 09/01. I asked the [facility] lab to try to get result the same day. (2) Pulmonary parenchymal mass Current Visit: Yes Status: Acute Code(s): R91.8 - OTHER NONSPECIFIC ABNORMAL FINDING OF LUNG FIELD SNOMED Code(s): 106726133 Comment: Multiple masses. Benzonate scheduled ordered. Discussed with Dr. Rodriguez. If cytology on pericardial fluid neg, will prceed with bronchoscopy. IV ceftriaxone and azithromycin for possible pulmonary infection. (3) Diabetes Current Visit: Yes Status: Acute Code(s): E11.9 - TYPE 2 DIABETES MELLITUS WITHOUT COMPLICATIONS SNOMED Code(s): 57154894 Comment: He never checks his FS at home. Diabetic education ordered. Continue Lantus and Lispro. (4) Atrial fibrillation Current Visit: Yes Status: Acute Code(s): I48.91 - UNSPECIFIED ATRIAL FIBRILLATION SNOMED Code(s): 86783924 Comment: Diltiazem CD 180 mg started 08/31. Consider anticoagulation after diagnostic wup done. (5) HTN (hypertension) Current Visit: Yes Status: Acute Code(s): I10 - ESSENTIAL (PRIMARY) HYPERTENSION SNOMED Code(s): 98768190 Comment: Continue lisinopril.
[2016-09-01] MEDS ORDERED: fentaNYL* 50 MCG/ML 2 ML VIAL (100 MCG VIAL) ONE (14:51)
[2016-09-01] MEDS ORDERED: Midazolam* 1 MG/ML 5 ML VIAL (5 MG) ONE (14:51)
[2016-09-01] MEDS ORDERED: Lidocaine 1% INJ* 10 MG/ML 30 ML SDV ONE (14:51)
[2016-09-01 16:08] LABS: Body Fluid Appearance Bloody
[2016-09-01 16:17] LABS: Body Fluid WBC 17079 /mcL
[2016-09-01 16:34] LABS: Body Fluid Reactive Lymph 2 %; Body Fluid Total Cells Counted 100
--- NOTE | 2016-09-01 16:56 | PN ---
Progress Note - Progress Note Note: Pulm consult f/u note 09/01/16. Pt seen and examined at bedside. Pt reports no change in sx. He is concerned that he could not sleep well last night. Active Medications Generic Name Dose Route Start Last Admin Trade Name Freq PRN Reason Stop Dose Admin Acetaminophen 650 mg 09/01/16 02:25 Tylenol Tab* PO Q6H PRN FEVER/PAIN Aspirin 81 mg 09/01/16 09:00 09/01/16 10:18 Aspirin Ec Low Dose* PO 81 mg DAILY JOY Administration Benzonatate 200 mg 09/01/16 14:00 09/01/16 14:00 Tessalon Cap* PO 200 mg TID JOY Administration Dextrose 12.5 gm 08/31/16 12:19 D50w Syringe 50 Ml* IV PUSH .FOR FS < 60 - SS PRN FS < 60 Diltiazem HCl 180 mg 09/01/16 10:00 09/01/16 11:25 Cardizem Cd Cap* PO 180 mg DAILY JOY Administration Ceftriaxone Sodium 1,000 mg/ 50 mls @ 200 mls/hr 09/01/16 12:00 09/01/16 11: 26 Sodium Chloride IVPB 200 mls/hr Q24H JOY Administration Azithromycin 500 mg/ Sodium 250 mls @ 250 mls/hr 09/01/16 12:00 09/01/16 12: 26 Chloride IVPB 250 mls/hr Q24H JOY Administration Insulin Glargine 20 units 09/01/16 21:00 Lantus(*) SUBCUT 2100 JOY Insulin Human Lispro 0 units 09/01/16 11:30 09/01/16 12:24 Humalog* SUBCUT 8 units ACHS JOY Administration Protocol Lisinopril 2.5 mg 09/01/16 09:00 09/01/16 10:18 Prinivil Tab* PO 2.5 mg DAILY JOY Administration Ondansetron HCl 4 mg 09/01/16 13:09 Zofran Inj* IV Q4H PRN NAUSEA Oxycodone HCl 5 mg 09/01/16 02:25 09/01/16 06:41 Roxycodone Tab* PO 5 mg Q4H PRN Administration PAIN Vital Signs Temp Pulse Resp BP Pulse Ox 97.2 F 101 18 136/88 99 09/01/16 11:04 09/01/16 11:04 09/01/16 14:00 09/01/16 11:04 09/01/16 11:04 Gen: Alert, sitting on the edge of his bed, looks comfortable. HEENT: No Scleral Icterus, Clear Oropharnyx, Mucous Membranes Moist Neck: NL Appearance and Movements; NL JVP, No Thyroid Enlargement, Masses Respiratory: Symmetrical Chest Expansion and Respiratory Effort, Clear to Auscultation, Clear to Percussion Cardiovascular: NL Sounds; No Murmurs; No JVD, RRR, No Edema Abdominal: NL Sounds; No Tenderness; No Distention, No Hepatosplenomegaly Extremities: No Edema, No Clubbing, Cyanosis Skin: No Rash or Ulcers, No Nodules or Sclerosis Neurological: Alert and Oriented x 3, NL Sensation Impression/Recommendations: Pt with pericardial effusion, mediastinal and abdomnial adenopathy, lung lesions concerning for malignancy versus lymphoma Pt had pericardiocentesis today Cytology pending If cytology negative, will schedule for EBUS on Wednesday c/w Rocephin and Azithromycin
--- NOTE | 2016-09-01 18:16 | TRS ---
TRANSFER SUMMARY: DATE OF ADMISSION: DATE OF TRANSFER: 09/01/16 HISTORY: This 65-year-old man presented with shortness of breath and cough. He had a nonproductive cough dating back about 3 months. He was diagnosed with bronchitis and had 5-day course of antibiotics about 2 weeks ago. It really helped very little. He has dyspnea on exertion. Chest x-ray showed right lobe infiltrate. CT scan of the abdomen, pelvis, and chest showed multiple pulmonary masses and some lymphadenopathy and mild enlarged pericardial effusion. As usual, the CT scan generally overestimated, it was considered moderate on the echo, but still significant. Dr. Villarreal attempted pericardiocentesis and removed some fluid that was contaminated with blood. He was not sure he was in the pericardial space at all. The cytology on the fluid he removed, however, was benign. The patient was in atrial fibrillation on arrival here. This is a new diagnosis. He responded well to diltiazem and was started on oral diltiazem. The patient is being transferred for management of his pericardial effusion and his pulmonary masses. DIAGNOSES ON TRANSFER: 1. Pericardial effusion. 2. Pulmonary parenchymal mass. 3. Diabetes. 4. Atrial fibrillation. 5. Hypertension. MEDICATIONS ON TRANSFER: 1. Acetaminophen 650 mg every 6 hours p.r.n. 2. Aspirin 81 mg daily. 3. Benzonatate 200 mg t.i.d. 4. Diltiazem CD 180 mg daily. 5. Glargine insulin 20 units daily at 9 p.m. 6. Lispro a.c. and at bedtime by sliding scale. 7. Lisinopril 2.5 mg daily. 8. Ondansetron 4 mg IV q.4 hours p.r.n. nausea. 9. Ceftriaxone 1 g IV q. 24 hours. 10. Azithromycin 500 mg IV daily. 11. Oxycodone 5 mg p.o. every 4 hours p.r.n. [id number]/[facility] #: [id number] [facility]
--- NOTE | 2016-09-01 19:03 | PN ---
Progress Note - Progress Note Note: Time spent on discharge 45 minutes.
--- NOTE | 2016-09-02 22:06 | CARD ---
DATE OF PROCEDURE: 09/01/16 - ROOM #[id number] PROCEDURE: Pericardiocentesis. INDICATION: Pericardial effusion. HISTORY: The patient is a 65-year-old gentleman, who was admitted to the hospital with cough and shortness of breath. He was found to have a large circumferential pericardial effusion. After consultation with Dr. Rodriguez, the recommendation is for the patient to undergo pericardiocentesis for cytology. PROCEDURE IN DETAIL: The patient was brought to the procedure room in a fasting state. Informed consent had been obtained prior to the procedure. All labs had been reviewed. The patient was placed in a supine position on the fluoroscopy table. The patient was placed at a 30-degree angle. The patient's subxiphoid area was prepped and draped in the usual fashion. 1% lidocaine was used for local anesthesia. Fentanyl was used for pain control. An echocardiogram obtained just before the procedure demonstrated that there was a 2-cm circumferential pericardial effusion that was 5 cm from the surface of the skin. A trocar needle was advanced under negative pressure and a fluid space was entered. A guidewire was placed and a 5-Lithuanian dilator was placed over the guidewire. Bloody fluid was removed. Fluoroscopy was done to try to confirm that the wire was in the pericardial space. A fenestrated catheter was then placed and approximately 200 cc of fluid was removed from the fenestrated tube. Ultrasound was done at the same time; however, the size of the fusion did not change at all and there was some concern that we were not in the pericardial space. The fenestrated catheter was then removed. Ultrasound was done in the subxiphoid position again under sterile condition and it was noted that there was still a 2-cm effusion anterior to the right ventricle. Again, a trocar needle was used to try to advance into the pericardial space without success. Ultimately, the decision was to stop the procedure. The patient will be transferred to a tertiary hospital for a pericardial window. The patient was stable when he left the procedure room and when he was transferred to [facility]. CC: Dr. Deb Mcfadden; Dr. Rodriguez* [id number]/[facility] #: [id number] [facility]
== END 2016-09-01 17:50 | disposition short-term general hospital (02) | DRG 315 ==
LOC: ED 09:41 → MEDTELE 11:43
PROVIDERS: ADMIT Internal Medicine; ATTEND Internal Medicine
PROC: 0W9D3ZX Drainage of Pericardial Cavity, Percutaneous Approach, Diagnostic (ICD-10-PCS; principal; 2016-09-01 14:45)
DX: I31.3 Pericardial effusion (noninflammatory) (principal); E87.1 Hypo-osmolality and hyponatremia; I48.91 Unspecified atrial fibrillation; E11.65 Type 2 diabetes mellitus with hyperglycemia; R91.8 Other nonspecific abnormal finding of lung field; I10 Essential (primary) hypertension; Z86.73 Personal history of transient ischemic attack (TIA), and cerebral infarction without residual deficits; Z79.82 Long term (current) use of aspirin; Z79.84 Long term (current) use of oral hypoglycemic drugs; Z79.899 Other long term (current) drug therapy; Z88.0 Allergy status to penicillin; Z80.0 Family history of malignant neoplasm of digestive organs; Z84.89 Family history of other specified conditions; Z87.891 Personal history of nicotine dependence
CPT/HCPCS: 33010; 36415; 71010; 71275; 74177; 80048; 80053; 82947; 83036; 83605; 83615; 83735; 83880; 84300; 84484; 85025; 87040; 87102; 87205; 88112; 89051; 93005; 93306; 93308; 94640; 96374; 99284; A9270-GY; C1769; J0456; J0696; J2250; J3010; J3475; Q9967

== ENCOUNTER 2016-09-10 22:03 | Inpatient (IN) | payer MEDICARE, BC ==
[2016-09-11 00:01] LABS: Albumin 3.2 g/dL (3.2-5.2); BUN/Creatinine Ratio 21.9 (8-20); Calcium 9.4 mg/dL (8.6-10.3); EGFR African American 138.7 (>60); EGFR Non-African American 107.8 (>60); Globulin 3.8 g/dL (2-4); Potassium 4.7 mmol/L (3.5-5.0); Total Bilirubin 0.5 mg/dL (0.2-1.0)
[2016-09-11 00:02] LABS: Troponin I 0.01 ng/mL (<0.04)
[2016-09-11] MEDS ORDERED: Insulin REGULAR(*) 1 UNITS UNIT IV PUSH ONE (00:11)
[2016-09-11 00:13] LABS: Add Diff/Slide Review? Slide Review Added; Comments Flag Yes; Hematocrit 40 % (42-52); Mean Corpuscular HGB Conc 32 g/dl (31-36); Mean Corpuscular Hemoglobin 28 pg (27-31); Mean Corpuscular Volume 88 fL (80-94); Mean Platelet Volume 8 um3 (7.4-10.4); Red Blood Count 4.61 10^6/ul (4.0-5.4); Red Cell Distribution Width 15 % (10.5-15); White Blood Count 17.7 10^3/ul (3.5-10.8)
--- NOTE | 2016-09-11 01:13 | ED ---
Benitez Wild Adam, scribed for Stu Cunningham on 09/10/16 at 2235 . Shortness of Breath - HPI Summary HPI Summary: Pt is a 65 year old male presenting with SOB since he was discharged from [facility] 5 days ago. He was referred to [facility] by Dr. Villarreal for a pericardial window because of an effusion. However he states that he continued to have SOB immediately after the operation and he does not believe it alleviated his symptoms at all. The SOB is aggravated by recumbent position; he states that when he lies down he feels like he is unable to breathe at all. Pt also presents with pedal edema and he c/o a cough that has been present for months. He denies any CP. PMHx includes CVA, DM, GI bleed, ulcer, and umbilical hernia. Pt is a former smoker. FMHx of DM and EtOH abuse. - History of Current Complaint Chief Complaint: EDShortnessOfBreath Time Seen by Provider: 09/10/16 22:27 Hx Obtained From: Patient Onset/Duration: Gradual Onset, Lasting Days, Still Present Current Severity: Moderate Dyspnea At: Rest Aggrevating Factors: Recumbent Position Alleviating Factors: Nothing Associated Signs & Symptoms: Cough (Nonproductive), Edema - Allergy/Home Medications Allergies/Adverse Reactions: Allergies Allergy/AdvReac Type Severity Reaction Status Date / Time No Known Allergies Allergy Verified 09/10/16 22:13 PMH/Surg Hx/FS Hx/Imm Hx Endocrine/Hematology History: Reports: Hx Diabetes Cardiovascular History: Reports: Hx Hypertension Denies: Hx Hypercholesterolemia GI History: Reports: Hx Gastrointestinal Bleed, Hx Ulcer, Other GI Disorders - umbilical hernia Musculoskeletal History: Reports: Other Musculoskeletal History - L4, L5 repair Sensory History: Reports: Hx Contacts or Glasses Opthamlomology History: Reports: Hx Contacts or Glasses Neurological History: Reports: Other Neuro Impairments/Disorders - Stroke - Surgical History Surgery Procedure, Year, and Place: mino, 1991 1998. hernia repair. tonsilectomy. nephrolithiasis Infectious Disease History: No Infectious Disease History: Denies: Traveled Outside the [place] in Last 30 Days - Family History Known Family History: Positive: Diabetes, Other - alcohol abuse - Social History Occupation: Employed Full-time Lives: With Family - Alcohol Use: None Hx Substance Use: No Substance Use Type: Reports: None Hx Tobacco Use: Yes Smoking Status (MU): Former Smoker Review of Systems Negative: Fever Negative: Chest Pain Positive: Shortness Of Breath, Cough Positive: Edema - Pedal All Other Systems Reviewed And Are Negative: Yes Physical Exam Triage Information Reviewed: Yes Vital Signs On Initial Exam: Initial Vitals Temp Pulse Resp BP Pulse Ox 98.4 F 110 18 111/96 99 09/10/16 22:05 09/10/16 22:05 09/10/16 22:05 09/10/16 22:05 09/10/16 22:05 Vital Signs Reviewed: Yes Appearance: Positive: Well-Appearing, No Pain Distress Skin: Positive: Warm, Skin Color Reflects Adequate Perfusion, Dry Head/Face: Positive: Normal Head/Face Inspection Eyes: Positive: EOMI, RASHIDA ENT: Positive: Normal ENT inspection Neck: Positive: Supple, Nontender Respiratory/Lung Sounds: Positive: Rales - Bilateral basilar rales Cardiovascular: Positive: Pulses are Symmetrical in both Upper and Lower Extremities, Tachycardia Abdomen Description: Positive: Nontender, Soft Bowel Sounds: Positive: Present Musculoskeletal: Positive: Strength/ROM Intact, Other - 4+ pedal edema Neurological: Positive: Normal, Sensory/Motor Intact, Alert, Oriented to Person Place, Time Diagnostics - Vital Signs Vital Signs Temp Pulse Resp BP Pulse Ox 09/10/16 22:05 98.4 F 110 18 111/96 99 - Laboratory Result Diagrams: 09/10/16 23:22 09/10/16 23:22 Lab Statement: Any lab studies that have been ordered have been reviewed, and results considered in the medical decision making process. - Radiology CXR Radiology Interpretation Completed By: ED Physician - Enlarged heart. Pleural effusion on right side. - EKG 23:17 Cardiac Rate: Tachycardia - 109 BPM EKG Rhythm: Atrial Fibrillation - With RVR - Additional Comments Diagnostic Additional Comments: Troponin I - 0.01 Course/Dx - Course Course Of Treatment: 00:29 - Patient will be admitted. Discussed with Dr. Andrews. - Diagnoses Provider Diagnoses: Dyspnea, Pericardial effusion Discharge - Discharge Plan Condition: Stable Disposition: ADMITTED TO [facility] Referrals: Deb Mcfadden MD [Primary Care Provider] - The documentation as recorded by the Benitez corbin Adam accurately reflects the service I personally performed and the decisions made by , Stu Cunningham.
--- NOTE | 2016-09-11 01:37 | HP ---
H&P (Free Text) History and Physical: PCP: Sandy Mcfadden MD Date/Time of Evaluation: 09/11/2016 0035 CC: SOB HPI: Mr Hernández is a 65YO male who was transferred from [facility] 09/01 to [facility] care of Dr Chacon for pericardial window and further evaluation of new pulmonary nodules. He was discharged last Wednesday which he, his , & daughter who is an ED nurse at another facility felt was too soon. He states he was told his SOB would improve, but hasn't. He continues to have significant BLE swelling and so called Dr Villarreal's office earlier and was told to come to the ED for admission and Dr Villarreal would see him in the AM. Work up reveals tachycardia 109-119, tachypnea 18-28, WBC 17.7k (down from 18.3) , Na 128, serum CO2 21, anion gap 17, & glucose of 412. ECG is AFIB rate 109 with new T-wave inversions in V5-6. CXR shows increased cardiomegaly compared to previous AP exam along with increased but small B pleural effusions. PMedHx CVA, no sequelae DM2 AFIB HTN chronic back pain Allergies No Known Allergies Allergy (Verified 09/10/16 22:13) Ambulatory Orders Nursing to reconcile. SocHx: former smoker quit ~10 years ago, quit alcohol ~30 years ago, no recreational drugs; lives with his ; full code status FamHx: Father passed of complications of cirrhosis. Mother passed of pancreatic CA. ROS: as above, otherwise reviewed and all were negative Constitutional: NAD, normally developed, overweight white male vitals: Vital Signs Temp 36.7 C 09/10/16 22:56 Pulse 102 09/11/16 00:01 Resp 24 09/11/16 00:30 BP 134/80 09/11/16 00:30 Pulse Ox 97 09/11/16 00:01 Intake & Output 09/10/16 09/10/16 09/11/16 11:59 23:59 11:59 Weight 83.007 kg HEENM: atraumatic; sclera/conjunctiva: non-icteric/clear; hearing: clinically intact; oropharynx: clear, mucosa moist Neck: soft tissue: non-tender; thyroid: normal Pulmonary: clear to auscultation bilaterally, good aeration, no accessory muscle use CV: RR/RR, normal S1S2, no carotid bruit, no jugular venous distention, 2+ B DP/ PT, 3+ B ankle edema down to trace just above the knees Abdominal: soft, non-distended, non-tender, no rebound/guarding/rigidity, normoactive bowel sounds, no hepatosplenomegaly or masses, no costovertebral angle tenderness Musculoskeletal: general: grossly intact; gait: stable Integumental: normal appearance and texture of exposed skin Psychiatric orientation: AA&O to PPS affect: mildly anxious mood: cooperative eye contact: good content: reliable responses: timely insight: good Testing: Lab Results 09/10/16 09/10/16 09/10/16 Range/Units 23:22 23:22 23:22 WBC 17.7 H (3.5-10.8) 10^3/ul RBC 4.61 (4.0-5.4) 10^6/ul Hgb 13.0 L (14.0-18.0) g/dl Hct 40 L (42-52) % MCV 88 (80-94) fL MCH 28 (27-31) pg MCHC 32 (31-36) g/dl RDW 15 (10.5-15) % Plt Count 576 H D (150-450) 10^3/ul MPV 8 (7.4-10.4) um3 Neut % (Auto) 85.3 H (38-83) % Lymph % (Auto) 6.2 L (25-47) % [place] % (Auto) 6.0 (1-9) % Eos % (Auto) 0.1 (0-6) % Baso % (Auto) 2.4 H (0-2) % Absolute Neuts (auto) 15.1 H (1.5-7.7) 10^3/ul Absolute Lymphs (auto) 1.1 (1.0-4.8) 10^3/ul Absolute Monos (auto) 1.1 H (0-0.8) 10^3/ul Absolute Eos (auto) 0 (0-0.6) 10^3/ul Absolute Basos (auto) 0.4 H (0-0.2) 10^3/ul Absolute Nucleated RBC 0.02 10^3/ul Nucleated RBC % 0.1 INR (Anticoag Therapy) 3.41 H (0.89-1.11) APTT 32.7 (26.0-36.3) seconds Sodium 128 L (133-145) mmol/L Potassium 4.7 (3.5-5.0) mmol/L Chloride 90 L (101-111) mmol/L Carbon Dioxide 21 L (22-32) mmol/L Anion Gap 17 H (2-11) mmol/L BUN 16 (6-24) mg/dL Creatinine 0.73 (0.67-1.17) mg/dL Est GFR ( Amer) 138.7 (>60) Est GFR (Non-Af Amer) 107.8 (>60) BUN/Creatinine Ratio 21.9 H (8-20) Glucose 412 H (70-100) mg/dL Calcium 9.4 (8.6-10.3) mg/dL Total Bilirubin 0.50 (0.2-1.0) mg/dL AST 15 (13-39) U/L ALT 20 (7-52) U/L Alkaline Phosphatase 67 (34-104) U/L Troponin I 0.01 (<0.04) ng/mL B-Natriuretic Peptide ( - 100) pg/mL Total Protein 7.0 (6.4-8.9) g/dL Albumin 3.2 (3.2-5.2) g/dL Globulin 3.8 (2-4) g/dL Albumin/Globulin Ratio 0.8 L (1-3) 09/10/16 Range/Units 23:22 WBC (3.5-10.8) 10^3/ul RBC (4.0-5.4) 10^6/ul Hgb (14.0-18.0) g/dl Hct (42-52) % MCV (80-94) fL MCH (27-31) pg MCHC (31-36) g/dl RDW (10.5-15) % Plt Count (150-450) 10^3/ul MPV (7.4-10.4) um3 Neut % (Auto) (38-83) % Lymph % (Auto) (25-47) % [place] % (Auto) (1-9) % Eos % (Auto) (0-6) % Baso % (Auto) (0-2) % Absolute Neuts (auto) (1.5-7.7) 10^3/ul Absolute Lymphs (auto) (1.0-4.8) 10^3/ul Absolute Monos (auto) (0-0.8) 10^3/ul Absolute Eos (auto) (0-0.6) 10^3/ul Absolute Basos (auto) (0-0.2) 10^3/ul Absolute Nucleated RBC 10^3/ul Nucleated RBC % INR (Anticoag Therapy) (0.89-1.11) APTT (26.0-36.3) seconds Sodium (133-145) mmol/L Potassium (3.5-5.0) mmol/L Chloride (101-111) mmol/L Carbon Dioxide (22-32) mmol/L Anion Gap (2-11) mmol/L BUN (6-24) mg/dL Creatinine (0.67-1.17) mg/dL Est GFR ( Amer) (>60) Est GFR (Non-Af Amer) (>60) BUN/Creatinine Ratio (8-20) Glucose (70-100) mg/dL Calcium (8.6-10.3) mg/dL Total Bilirubin (0.2-1.0) mg/dL AST (13-39) U/L ALT (7-52) U/L Alkaline Phosphatase (34-104) U/L Troponin I (<0.04) ng/mL B-Natriuretic Peptide 328 H ( - 100) pg/mL Total Protein (6.4-8.9) g/dL Albumin (3.2-5.2) g/dL Globulin (2-4) g/dL Albumin/Globulin Ratio (1-3) ECG, personally reviewed: AFIB rate 109 with new T-wave inversions in V5-6 CXR, personally reviewed: increased cardiomegaly compared to previous AP exam along with increased but small B pleural effusions ECHO 08/31/2016: mild-mod cLVH, EF 50-55%, non-diagnostic diastolic assessment, LA moderately dilated, no /AR, trace MR, no MS, trace [place], no PS, trace TR, no TS, moderate pericardial effusion Impression: 65M presenting with persistent SOB and peripheral edema s/p pericardial window at [facility] DIAGNOSIS & PLAN Primary acute diastolic HF : IV furosemide diuresis : recheck ECHO in AM : Aimee Villarreal MD cardiology to be consulted in AM : strict I&Os : daily weights : supplemental oxygen : supportive care hypoNatremia : ? etiology: SIADH vs dilutional 2nd CHF : diurese, trend Secondary CVA, no sequelae : review meds once reconciled DM2 : insulin carb ratio diet : basal/bolus/correctional protocol : A1c 13 08/31/2016 : check VBG give hyperglycemia, low serum CO2, and elevated anion gap AFIB : continue meds once reconciled HTN : review meds once reconciled Admission Rational: inpatient for management of CHF and cardiology evaluation inappropriate for outpatient setting DVTp: SCDs & warfarin (warfarin to restart once INR down to therapeutic) Code Status: full HCP:
[2016-09-11 02:55] LABS: Venous Bicarbonate HCO3 23.7 mmol/L (24-28)
[2016-09-11 05:20] LABS: Hematocrit 38 % (42-52); Hemoglobin 12.6 g/dl (14.0-18.0); Mean Corpuscular HGB Conc 33 g/dl (31-36); Mean Corpuscular Hemoglobin 28 pg (27-31); Mean Corpuscular Volume 86 fL (80-94); Mean Platelet Volume 8 um3 (7.4-10.4); Red Blood Count 4.43 10^6/ul (4.0-5.4); Red Cell Distribution Width 14 % (10.5-15); White Blood Count 18.1 10^3/ul (3.5-10.8)
[2016-09-11 05:30] LABS: BUN/Creatinine Ratio 28.6 (8-20); Calcium 9.1 mg/dL (8.6-10.3); EGFR African American 188.3 (>60); EGFR Non-African American 146.4 (>60); Potassium 4.3 mmol/L (3.5-5.0)
[2016-09-11] MEDS: HYDROcodone/ACETAMIN 5-325 MG* 1 TAB PO PRN ×2 (05:35→20:14)
--- NOTE | 2016-09-11 07:30 | RAD ---
INDICATION: Shortness of breath. COMPARISON: Comparison is made with a prior chest x-ray study from August 31, 2016. TECHNIQUE: A portable view of the chest was obtained. FINDINGS: The heart is moderately enlarged and unchanged from the prior exam. There are new small bilateral pleural effusions. There are small infiltrates at both lung bases. IMPRESSION: SMALL BILATERAL PLEURAL EFFUSIONS AND BIBASILAR INFILTRATES.
[2016-09-11] MEDS ORDERED: glipiZIDE TAB.XL* 5 MG PO SCH (08:00)
[2016-09-11] MEDS: Amoxicillin/Clavulanate TAB* 875 MG PO SCH ×2 (08:35→20:13)
[2016-09-11] MEDS: Benzonatate CAP* 100 MG PO SCH ×3 (08:36→20:13)
[2016-09-11] MEDS: Aspirin EC Low Dose* 81 MG TAB.EC PO SCH (08:36)
[2016-09-11] MEDS ORDERED: Lisinopril TAB* 5 MG PO SCH (09:00)
[2016-09-11] MEDS: Mometasone/Formoter 200/5 MDI INH SCH ×2 (09:59→20:14)
[2016-09-11] MEDS ORDERED: Insulin LISPRO* 1 UNITS UNIT SUBCUT ONE ×2 (10:00→17:00)
[2016-09-11] MEDS ORDERED: Furosemide IV* 10 MG/ML 2 ML VIAL (20 MG) IV SLOW PU ONE (14:00)
--- NOTE | 2016-09-11 15:39 | RAD ---
Indication: Bilateral leg edema Duplex Doppler sonography of the deep venous system of both lower extremities was performed. Bilaterally the common femoral veins, proximal greater saphenous veins, proximal deep femoral veins, femoral veins, popliteal veins, posterior tibial veins and peroneal veins appear patent and compressible. IMPRESSION: NO EVIDENCE OF DEEP VENOUS THROMBOSIS OF EITHER LOWER EXTREMITY IS PRESENT. Views of the calf vessels are limited due to edema..
[2016-09-11] MEDS ORDERED: Dextrose 50% Syringe 50 ML* 25 GM/50 ML SYRINGE IV PUSH PRN (16:16)
--- NOTE | 2016-09-11 16:45 | PN ---
Subjective Date of Service: 09/11/16 Interval History: C/O dyspnea at rest or with exertion, or with sleeping. Objective Active Medications: Hydrocodone Bitart/Acetaminophen (Grant 5-325 Tab*) 2 tab PO Q4H PRN PRN Reason: PAIN Last Admin: 09/11/16 05:35 Dose: 2 tab Amoxicillin/Clavulanate Potassium (Augmentin Tab*) 875 mg PO BID [facility] Last Admin: 09/11/16 08:35 Dose: 875 mg Aspirin (Aspirin Ec Low Dose*) 81 mg PO DAILY [facility] Last Admin: 09/11/16 08:36 Dose: 81 mg Benzonatate (Tessalon Cap*) 100 mg PO TID [facility] Last Admin: 09/11/16 14:48 Dose: 100 mg Dextrose (D50w Syringe 50 Ml*) 12.5 gm IV PUSH .FOR FS < 60 - SS PRN PRN Reason: FS < 60 Furosemide (Lasix Iv*) 40 mg IV ONCE ONE Stop: 09/11/16 17:01 Furosemide (Lasix Iv*) 40 mg IV DAILY [facility] Insulin Glargine (Lantus(*)) 20 units SUBCUT Q24H [facility] Insulin Human Lispro (Humalog*) 6 units SUBCUT AC [facility] Insulin Human Lispro (Humalog*) 12 units SUBCUT ONCE ONE Stop: 09/11/16 17:01 Mometasone Furoate/Formoterol Fumar (Dulera 200/5 Mdi*) 2 puff INH BID [facility] Last Admin: 09/11/16 09:59 Dose: 2 puff Vital Signs 09/11/16 09/11/16 09/11/16 03:55 04:16 04:43 Temperature 98.2 F Pulse Rate 84 Respiratory 16 20 Rate Blood Pressure 135/74 (mmHg) O2 Sat by Pulse 99 94 Oximetry 09/11/16 09/11/16 09/11/16 05:35 07:35 08:00 Temperature Pulse Rate Respiratory 16 16 16 Rate Blood Pressure (mmHg) O2 Sat by Pulse Oximetry 09/11/16 09/11/16 09/11/16 08:06 10:02 11:53 Temperature 97.2 F 97.1 F Pulse Rate 81 88 Respiratory 16 16 Rate Blood Pressure 116/65 89/70 (mmHg) O2 Sat by Pulse 100 96 99 Oximetry 09/11/16 12:28 Temperature Pulse Rate 90 Respiratory Rate Blood Pressure 127/62 (mmHg) O2 Sat by Pulse Oximetry Oxygen Devices in Use Now: None Appearance: Alert, sitting on the edge of his bed. Anxious but otherwise looks comfortable. Eyes: No Scleral Icterus Ears/Nose/Mouth/Throat: Clear Oropharnyx, Mucous Membranes Moist Neck: No Thyroid Enlargement, Masses, - - JVD at 90 degrees Respiratory: Symmetrical Chest Expansion and Respiratory Effort, Clear to Auscultation, Clear to Percussion Cardiovascular: NL Sounds; No Murmurs; No JVD, RRR, No Edema, - Extremities: - - 2+ edema BL Skin: No Rash or Ulcers, No Nodules or Sclerosis, - - 8 cm surgical wound L subcostal area. Neurological: Alert and Oriented x 3, NL Sensation Result Diagrams: 09/11/16 04:59 09/11/16 04:59 Assess/Plan/Problems-Billing Assessment: - Patient Problems (1) Pericardial effusion Current Visit: No Status: Acute Code(s): I31.3 - PERICARDIAL EFFUSION ( NONINFLAMMATORY) SNOMED Code(s): 061958118 Comment: S/P pericardial window at [facility]. Discussed with Dr. Veronica. He ordered furosemide 20 mg IV. Pt voided only once so far, about 300 ml. He will try to void again and nurse will check PVR by scan, then give furosemide 40 mg IV 09/11 5 PM, then q AM starting 09/12. BMP 09/12. Also, overnight oximetry on RA 09/11-09/12. (2) Diabetes Current Visit: No Status: Acute Code(s): E11.9 - TYPE 2 DIABETES MELLITUS WITHOUT COMPLICATIONS SNOMED Code(s): 11191744 Comment: Poorly controlled here, one dose glipzide given. Diabetic education and consult ordered. Lantus and Lispro ac started 09/11. (3) Atrial fibrillation Current Visit: No Status: Acute Code(s): I48.91 - UNSPECIFIED ATRIAL FIBRILLATION SNOMED Code(s): 10429398 Comment: Diltiazem CD 120 mg to start 09/12. Two doses 30 mg in PM 09/11. Consider anticoagulation after diagnostic wup done. (4) Pulmonary parenchymal mass Current Visit: No Status: Acute Code(s): R91.8 - OTHER NONSPECIFIC ABNORMAL FINDING OF LUNG FIELD SNOMED Code(s): 704721423 Comment: Discussed with Dr. Rodriguez. She will schedule bronchoscopy. (5) DVT of proximal leg (deep vein thrombosis) Current Visit: Yes Status: Acute Code(s): I82.4Y9 - ACUTE EMBLSM AND THOMBOS UNSP DEEP VN UNSP PROX LOW EXTRM SNOMED Code(s): 213766926 (6) DVT prophylaxis Current Visit: Yes Status: Acute Code(s): KCL1519 - SNOMED Code(s): 265174088 Comment: SCD's ordered. Hold off anticoagulation due to possibility of pericardial hemorrhage.
[2016-09-11] MEDS: Insulin LISPRO* 1 UNITS UNIT SUBCUT SCH (16:55)
[2016-09-11] MEDS ORDERED: Insulin GLARGINE(*) 1 UNITS UNIT SUBCUT SCH (17:00)
[2016-09-11] MEDS ORDERED: Warfarin TAB(*) 5 MG PO SCH (17:00)
[2016-09-11] MEDS ORDERED: Furosemide IV* 10 MG/ML 10 ML VIAL (100 MG) IV ONE (17:00)
[2016-09-11] MEDS: Diltiazem TAB* 30 MG PO SCH ×3 (18:13→22:09)
[2016-09-11] MEDS: Insulin GLARGINE(*) 1 UNITS UNIT SUBCUT SCH (20:14)
--- NOTE | 2016-09-11 21:02 | CONS ---
CC: Dr. Malcom Veronica; Primary Care Doctor CARDIOLOGY CONSULTATION: DATE OF CONSULT: 09/11/16 CONSULTING PHYSICIAN: Dr. Rothman. REASON FOR EVALUATION: Dyspnea, pericardial effusion, AFib. HISTORY OF PRESENT ILLNESS: This is a very pleasant 65-year-old man who is accompanied by his . He has a history of hypertension and diabetes and was in his usual state of health until about 3 months ago when he developed a nonproductive cough. He has had the cough and was doing well until about 2-1/2 weeks ago when he developed progressive shortness of breath and orthopnea. At that time, he came to the hospital and was found to have pericardial effusion. He was also found to be in irregular rhythm and AFib, which was a new condition. He refused admission to the hospital and went home. At that time, he was walking just down his driveway and back and getting shortness of breath, but he denied orthopnea. He went to the emergency room and got a chest x-ray. He was found to have an irregular heart rhythm and he went back to the hospital a short time after on 08/31/16 for evaluation. He had a CT scan, which showed evidence of pneumonia and a large circumferential pericardial effusion and significant perihilar lymphadenopathy. He was admitted for atrial fibrillation and pericardial effusion. He had an echocardiogram performed on 08/31/16, which revealed [id number] LVH, EF at lower limits of normal, 50% to 55%, trace MR, trace TR, circumferential pericardial effusion, moderate. No sign of hemodynamic compromise. Mild dilatation of the descending aorta, mild dilatation of the ascending aorta at 3.8. Compared to October 2006, LV function and valve function are the same. The pericardial effusion was new and he subsequently had a consult with Dr. Rodriguez. It was recommended he have rate control anticoagulation once diagnostic workup was available and consideration of bronchoscopy. It was felt that the differential included primary lung cancer versus lymphoma versus intraabdominal malignancy versus inflammatory process and we thought he might benefit from pericardiocentesis for staging. Dr. Villarreal attempted to draw off some fluid. He got 200 cc and then when the patient was transferred to [facility] to Dr. Garcia for pericardial window since the rest of the fluid could not be obtained. I do not have the records of that admission, but the patient and his are saying that they took off additional 600 cc, left the drainage in for several days and then he was discharged on 09/05/16. He also reported that he was started on diltiazem at [facility] for heart rate control. He was started on anticoagulation and he said that he developed worsening edema while he was there , but was able to get around the nursing station with his walker. Since he has been home, he said he has had progressive shortness of breath and orthopnea. He said he has been having to sleep in his chair. He had been able to go and up down steps at one point, but had to resort to living in his first floor over the course of the week. Because of progressive shortness of breath, he called his PMD, was referred to the emergency room and is now admitted for further evaluation and treatment. He denies syncope, but said that he had a spell about 6 months ago where he felt like he was lightheaded and might pass out, it was brief. He denies fevers or chills. He said sometimes he has problems emptying his bladder, but has had no dysuria. He denies fevers, hematemesis, or hematochezia. Denies dietary indiscretion with salt. He has a history of tobacco use, discontinued 10 years ago when he had a CVA. He has a history of alcohol use, discontinued 30 years ago. He drinks 1 or 2 Pepsi a day and a 1 cup of coffee a day. PAST MEDICAL HISTORY: Includes diabetes, obesity, hypertension. He presented with a stroke 10 years ago, was markedly hypertensive, and was treated with lisinopril with good control of his blood pressures. He has a history of urinary hesitancy. He denies asthma or emphysema. PAST SURGICAL HISTORY: Includes back laminectomy. He also has had 4 hernias, 2 laminectomies, and tonsils. FAMILY HISTORY: Father of alcoholism, cirrhosis, and liver cancer at age 71. Mother at 84 of pancreatic cancer. He has one sister who is a year older and alive and well. SOCIAL HISTORY: He is on his second marriage and has 5 kids combined with her. 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 REVIEW OF SYSTEMS: Review of systems x10 was negative except as above. PHYSICAL EXAM: He is a well-developed, well-nourished gentleman, obese, easily winded with talking, mildly hoarse, but he said that has been since his intubation for the pericardial window. Atraumatic, normocephalic. Extraocular muscles intact. Sclerae anicteric. Carotids 2+ without bruits. There is JVD of approximately 10 to 12 cm. Cardiac Exam: S1, S2. Regular. No clear murmurs, gallops, or rubs. Chest: Rales about a quarter way up bilaterally with some presacral edema. Abdomen was protuberant with a ventral hernia. Femoral pulses intact without bruits. There was pitting edema of 3 to 4+ in his lower extremities and to a lesser degree into his thighs. Motor strength 5/ 5 bilaterally. Deep tendon reflexes 2/4. Alert and oriented x3. DIAGNOSTIC STUDIES/LAB DATA: Include elevated white count of 18.1, hemoglobin 12.6, hematocrit of 36, platelet count of 516. Sodium 126, potassium 4.3, BUN of 16, creatinine of 0.56, glucose elevated at 339. BNP elevated at 328. Troponin of 0.01. It had been 0.02, 0.01, 0.01 last visit. INR is 3.41. PTT is 32.7. Chest x-ray revealed small bilateral pleural effusions and basilar infiltrates. Chest CTA from August [address] evidence of acute pulmonary embolic disease. Multiple mass-like pulmonary parenchymal lesions, inflammatory, neoplastic etiologies are possible. Right-sided pleural effusion, mild mediastinal lymphadenopathy, cardiomegaly, and pericardial effusion, infradiaphragmatic lymphadenopathy and cytology from 09/01/16 revealed 10 mL of cloudy deep red fluid with red gelatinous material, negative for malignant cells , abundant inflammation and he had a repeat echocardiogram today which revealed similar study with a moderate pericardial effusion anteriorly and apically, but reduced in size compared to the previous. RV appeared to be functioning somewhat better. There was no Doppler or 2D evidence of hemodynamic compromise. Pericardium appeared to be a little thickened with a possibility of constrictive effusive process. He was in atrial fibrillation. IMPRESSION: My impression is that Mr. Hernández has shortness of breath of unclear etiology and also has pulmonary process and pericardial effusion possibly representing a malignancy or inflammatory process. He does appear to have right- sided heart failure of unclear etiology. This could be related to atrial fibrillation with poor ventricular response and/or constrictive physiology or constrictive effusive process. He does not appear to have clear tamponade at this point in time. I did discuss these possibilities with him and his . Given the complex clinical picture, I have recommended the followin. I suggested gentle diuresis to try to improve his overall comfort and volume status. 2. He may require rate control. 3. Given his low normal blood pressures, I suggest that we stop his lisinopril for now. 4. If he needs rate control, may have to consider a low dose of a beta-janis or calcium channel janis. 5. I discussed the case with Dr. Rothman and concur with getting Pulmonary involved again. 6. I understand his prognosis and treatment will largely be determined by the etiology of the findings if the lung which probably are related to the pericardial effusion. 7. I do suspect that pericardial effusion may be inflammatory malignant given the pulmonary nodules and the fibrinous material noted on the pericardial effusion. 8. I did explain that if indeed he has constrictive effusive pericarditis, the long-term treatment that might involve pericardial stripping. At this point, I do not believe he is a candidate for that. In the interim, I suggest taking this oppurtunity to diurese him and to get his heart rate under better control and determine the etiology of his pulmonary findings. I concur with continued anticoagulation. 9. Given his recent hospitalization and malignancy and his swollen legs, I would suggest a repeat evaluation for deep venous thrombosis with duplex Dopplers. [id number]/[facility] #: [id number] ISAURA
[2016-09-11] MEDS ORDERED: LORazepam INJ* 2 MG/ML 1 ML VIAL IV PUSH ONE (22:00)
[2016-09-12 05:59] LABS: BUN/Creatinine Ratio 28.1 (8-20); Calcium 9.2 mg/dL (8.6-10.3); EGFR African American 161.4 (>60); EGFR Non-African American 125.5 (>60); Potassium 3.9 mmol/L (3.5-5.0)
[2016-09-12 06:06] LABS: Hematocrit 39 % (42-52); Hemoglobin 12.9 g/dl (14.0-18.0); Mean Corpuscular HGB Conc 33 g/dl (31-36); Mean Corpuscular Hemoglobin 29 pg (27-31); Mean Corpuscular Volume 87 fL (80-94); Mean Platelet Volume 8 um3 (7.4-10.4); Red Blood Count 4.52 10^6/ul (4.0-5.4); Red Cell Distribution Width 15 % (10.5-15); White Blood Count 19.1 10^3/ul (3.5-10.8)
[2016-09-12 07:07] LABS: Erythrocyte Sed Rate 72 mm/Hr (0-40)
[2016-09-12] MEDS: Mometasone/Formoter 200/5 MDI INH SCH ×2 (08:09→21:00)
[2016-09-12] MEDS: Insulin LISPRO* 1 UNITS UNIT SUBCUT SCH ×3 (08:27→17:41)
[2016-09-12] MEDS: Aspirin EC Low Dose* 81 MG TAB.EC PO SCH (08:28)
[2016-09-12] MEDS: Furosemide IV* 10 MG/ML 10 ML VIAL (100 MG) IV SCH (08:28)
[2016-09-12] MEDS: Diltiazem CD CAP* 120 MG PO SCH (08:28)
[2016-09-12] MEDS: Benzonatate CAP* 100 MG PO SCH ×3 (08:28→21:12)
[2016-09-12] MEDS: Amoxicillin/Clavulanate TAB* 875 MG PO SCH ×2 (08:28→21:12)
[2016-09-12] MEDS ORDERED: Metolazone TAB* 5 MG PO ONE (13:00)
[2016-09-12] MEDS ORDERED: Furosemide IV* 10 MG/ML VIAL (40 MG) IV SLOW PU ONE (13:30)
--- NOTE | 2016-09-12 18:30 | PN ---
Subjective Date of Service: 09/12/16 Interval History: Patient still complains of SOB as well as pleuritic pain. Objective Active Medications: Hydrocodone Bitart/Acetaminophen ([place] 5-325 Tab*) 2 tab PO Q4H PRN PRN Reason: PAIN Last Admin: 09/11/16 20:14 Dose: 2 tab Amoxicillin/Clavulanate Potassium (Augmentin Tab*) 875 mg PO BID [facility] Last Admin: 09/12/16 08:28 Dose: 875 mg Aspirin (Aspirin Ec Low Dose*) 81 mg PO DAILY [facility] Last Admin: 09/12/16 08:28 Dose: 81 mg Benzonatate (Tessalon Cap*) 100 mg PO TID [facility] Last Admin: 09/12/16 13:32 Dose: 100 mg Dextrose (D50w Syringe 50 Ml*) 12.5 gm IV PUSH .FOR FS < 60 - SS PRN PRN Reason: FS < 60 Diltiazem HCl (Cardizem Cd Cap*) 120 mg PO DAILY [facility] Last Admin: 09/12/16 08:28 Dose: 120 mg Diltiazem HCl (Cardizem Tab*) 30 mg PO 2300 [facility] Last Admin: 09/11/16 22:09 Dose: 30 mg Furosemide (Lasix Iv*) 40 mg IV DAILY [facility] Last Admin: 09/12/16 08:28 Dose: 40 mg Insulin Glargine (Lantus(*)) 20 units SUBCUT 2100 [facility] Last Admin: 09/11/16 20:14 Dose: 20 unit Insulin Human Lispro (Humalog*) 6 units SUBCUT AC [facility] Last Admin: 09/12/16 17:41 Dose: 6 units Mometasone Furoate/Formoterol Fumar (Dulera 200/5 Mdi*) 2 puff INH BID [facility] Last Admin: 09/12/16 08:09 Dose: 2 puff Vital Signs 09/11/16 09/11/16 09/11/16 19:58 20:00 20:14 Temperature 98.9 F Pulse Rate 93 Respiratory 20 16 Rate Blood Pressure 121/51 (mmHg) O2 Sat by Pulse 99 Oximetry 09/11/16 09/11/16 09/11/16 22:08 22:14 22:35 Temperature Pulse Rate Respiratory 20 20 Rate Blood Pressure (mmHg) O2 Sat by Pulse 93 Oximetry 09/11/16 09/12/1609/12/17 23:08 00:00 00:06 Temperature 98.2 F Pulse Rate 87 Respiratory 20 16 Rate Blood Pressure 122/67 (mmHg) O2 Sat by Pulse 91 91 Oximetry 09/12/16 09/12/16 09/12/16 03:38 07:47 08:00 Temperature 98.4 F 97.6 F Pulse Rate 94 93 Respiratory 16 16 16 Rate Blood Pressure 105/58 118/62 (mmHg) O2 Sat by Pulse 92 92 92 Oximetry 09/12/16 09/12/16 09/12/16 08:11 12:32 13:28 Temperature 97.7 F Pulse Rate 96 Respiratory 16 Rate Blood Pressure 143/68 118/62 (mmHg) O2 Sat by Pulse 97 96 97 Oximetry 09/12/16 16:00 Temperature Pulse Rate Respiratory Rate Blood Pressure (mmHg) O2 Sat by Pulse 97 Oximetry Oxygen Devices in Use Now: Nasal Cannula Appearance: Elderly gentleman sitting up in bed in NAD Eyes: No Scleral Icterus Ears/Nose/Mouth/Throat: Mucous Membranes Moist Neck: NL Appearance and Movements; NL JVP, No Thyroid Enlargement, Masses Respiratory: - - Minimal b/l wheezing Cardiovascular: - - S1S2 osmar Abdominal: NL Sounds; No Tenderness; No Distention, No Hepatosplenomegaly Lymphatic: No Cervical Adenopathy Extremities: No Clubbing, Cyanosis Skin: No Rash or Ulcers Neurological: Alert and Oriented x 3 Result Diagrams: 09/12/16 05:19 09/12/16 05:19 Microbiology and Other Data: Microbiology 09/11/16 04:59 Aerobic Blood Culture - Preliminary Blood Venous No Growth Day 1 Anaerobic Blood Culture - Preliminary No Growth Day 1 Assess/Plan/Problems-Billing Assessment: 65 year old s/p pericardial window who presents to [facility] with worsening sob. - Patient Problems (1) Pericardial effusion Current Visit: No Status: Acute Code(s): I31.3 - PERICARDIAL EFFUSION ( NONINFLAMMATORY) SNOMED Code(s): 551602416 Comment: S/P pericardial window at [facility]. May explain his pain. Discussed again with Dr. Veronica. he thinks may still be fluid overloaded. He increased furosemide and added metolazone. Does desaturate at night. Continue supplemental oxygen. (2) Pulmonary parenchymal mass Current Visit: No Status: Acute Code(s): R91.8 - OTHER NONSPECIFIC ABNORMAL FINDING OF LUNG FIELD SNOMED Code(s): 630901848 Comment: Discussed with Dr. Rodriguez. He will need biopsy and perhaps bronchoscopy.I am ordering CT scan. Results from pericardial fluid in [place] inconclusive but concerning for malignancy. Reorder CT scan. (3) Atrial fibrillation Current Visit: No Status: Acute Code(s): I48.91 - UNSPECIFIED ATRIAL FIBRILLATION SNOMED Code(s): 28900108 Comment: Diltiazem CD 120 mg to start 09/12. Two doses 30 mg in PM 09/11. Consider anticoagulation after diagnostic wup done. (4) Diabetes Current Visit: No Status: Acute Code(s): E11.9 - TYPE 2 DIABETES MELLITUS WITHOUT COMPLICATIONS SNOMED Code(s): 64927357 Comment: Borderline control now. Diabetic education and consult ordered. Lantus and Lispro ac started 09/11. (5) HTN (hypertension) Current Visit: No Status: Acute Code(s): I10 - ESSENTIAL (PRIMARY) HYPERTENSION SNOMED Code(s): 21347759 Comment: Borderline control.Continue current meds and adjust accordingly. (6) COPD (chronic obstructive pulmonary disease) Current Visit: Yes Status: Acute Code(s): J44.9 - CHRONIC OBSTRUCTIVE PULMONARY DISEASE, UNSPECIFIED SNOMED Code(s): 59632684 Comment: He does use inhalers and is wheezing. Add duoneb. (7) DVT prophylaxis Current Visit: Yes Status: Acute Code(s): HSM1565 - SNOMED Code(s): 155685025 Comment: SCD's ordered. INR elevated still with coumadin. Hold coumadin (8) Full code status Current Visit: Yes Status: Acute Code(s): Z78.9 - OTHER SPECIFIED HEALTH STATUS SNOMED Code(s): 333047401
[2016-09-12] MEDS ORDERED: Albuterol/Ipratropium NEB.SOL* Albuterol 2.5 MG/Ipratropium 0.5 MG 3 ML INH PRN (18:36)
[2016-09-12] MEDS ORDERED: Iodixanol* (CONTRAST) 320 MG/ML 100 ML SDV IV ONE (19:19)
--- NOTE | 2016-09-12 19:45 | CONS ---
PULMONARY CONSULTATION REPORT: DATE OF CONSULT: 09/12/16 CONSULTATION REQUESTED BY: Dr. Maxime Rothman. REASON FOR CONSULTATION: Evaluation of lung mass found on recent CT chest. HISTORY OF PRESENT ILLNESS: The patient is a 65-year-old male with history of hypertension and diabetes, in usual state of health until about 3 months ago when he started having nonproductive cough, two and a half weeks ago he also developed progressive shortness of breath, orthopnea. He came in to the hospital and was found to have irregular atrial fibrillation. He discharged himself from the emergency room and returned back with worsening symptoms. The patient was found to be in atrial fibrillation. Further evaluation also revealed lung masses, large circumferential pericardial effusion and perihilar adenopathy. The patient was seen by me at that admission. The patient was symptomatic with the pericardial effusion and he had pericardiocentesis performed here. Not much fluid could be removed during that time and he was transferred to [facility]. The patient apparently had pericardial window placement and had 600 cc of fluid removed from that space. We do not have any records from that admission and it is unclear if the diagnosis was obtained. He was discharged from [facility] and returns to the ED for worsening dyspnea. The patient reports significant dyspnea since discharge. He also reports panic attacks. The patient was noted to be hypoxic during the admission. The patient had overnight oximetry performed last night which was suggestive of hypoxemia qualifying for O2. The patient reports significant shortness of breath lying down. He denies fevers or chills. Denies significant fatigue. PAST MEDICAL HISTORY: 1. Obesity. 2. Diabetes. 3. Hypertension. 4. CVA 10 years ago. 5. Urinary hesitancy. PAST SURGICAL HISTORY: 1. Laminectomy for abdominal hernias. 2. Tonsillectomy. FAMILY HISTORY: Father of alcoholism, cirrhosis, and liver cancer at age 71. Mother from pancreatic cancer. Sister is alive and well. SOCIAL HISTORY: He is and lives with his . REVIEW OF SYSTEMS: All 14 systems were reviewed and as per HPI. PHYSICAL EXAMINATION: Sitting in bed, in no apparent distress. Reports worsening shortness of breath by lying down flat. Vital Signs: Temperature 97.6, pulse 93 beats per minute, respiratory rate 16, O2 sat 97% on 2 L, blood pressure 118/62. HEENT: Pupils equal, reactive to light, mucous membranes moist. Respiratory: Rales at bases, diminished breaths sounds on right base. No wheeze. Cardiovascular: S1, S2 present, regular. Abdomen: Obese, ventral hernia present. Extremities: Normal range of motion. No fractures. Integumentary: No rash or bruits. Neurological: Alert, awake, oriented x3. DIAGNOSTIC STUDIES/LAB DATA: WBC count 19.1, hemoglobin 12.9, hematocrit 39, platelet count 463 with left shift. INR 4.28. Blood gas analysis showed pH of 7.45, pCO2 32, pO2 44, bicarb 23.7. Sodium is 128, potassium 3.9, chloride 92, bicarb of 27, BUN of 18, creatinine of 0.64. CRP 218, BNP 310. Chest x-ray showed poor inspiration with small effusions bilaterally at the bases. CTA from August 31 revealed multiple mass-like pulmonary parenchymal lesions , small right pleural effusion, mild mediastinal adenopathy, cardiomegaly, pericardial effusion, abdominal adenopathy. Cytology from pleural fluid showed red gelatinous material negative for malignant cells, abundant inflammation Repeat echocardiogram showed moderate pericardial effusion, anteriorly and apically reduced in size compared to the prior one, constrictive pericarditis being a possibility. IMPRESSION AND RECOMMENDATIONS: The patient with dry cough recently with evidence of pericardial effusion, mass lesions in the lungs, mildly enlarged lymph nodes, atrial fibrillation with constrictive pericardial process with no tamponades and with significant shortness of breath. Shortness of breath likely secondary to constrictive pericarditis and underlying atrial fibrillation. Lung masses and pericardial effusion of unknown etiology. The patient apparently had pericardial window placement with drainage of 600 cc. Will need to obtain those records to find out the etiology. If no diagnosis is obtainable from the pericardial studies recently done at [facility], will schedule him for bronchoscopy and EBUS on Wednesday. Will need to hold Coumadin and initiate patient on Lovenox. He is qualifying for oxygen and he should be set up with O2 at home. Differentials are pretty broad at this time including infectious and inflammatory etiologies. I have ordered serological workup. Thank you for allowing me to take part in complicated patient. Will follow up with you. [id number]/[facility] #: [id number] MTDD
--- NOTE | 2016-09-12 20:15 | RAD ---
INDICATION: Parenchymal mass. Shortness of breath, CHF. COMPARISON: September 10, 2016 chest radiograph and August 31, 2016 CT. TECHNIQUE: Multidetector CT images were obtained from the lung apices to the upper abdomen with 80 mL Visipaque 320 IV contrast. Multiplanar reformation. REPORT: Moderate RIGHT and small LEFT dependent pleural effusions with associated compressive atelectasis. Mild interval decrease in size of consolidation at the lateral segment of the RIGHT middle lobe compared with the August 31, 2016 exam. 1.3 x 2.1 cm region of consolidation at the superior segment of the RIGHT lower lobe is grossly unchanged in size. Rounded consolidation at the central basilar portion of the LEFT lower lobe is unchanged in size. No new focal pulmonary lesions evident. Negative for pneumothorax. 1.6 cm short axis RIGHT paratracheal lymph node is unchanged. Enlarged subcarinal node is unchanged. Mild cardiomegaly. Large pericardial effusion is unchanged. Normal diameter thoracic aorta with mild atherosclerotic plaque. Images through the upper abdomen are remarkable for unchanged celiac axis and emre hepatis adenopathy. Negative for suspicious thoracic osseous lesions. IMPRESSION: 1. Increased RIGHT and new LEFT pleural effusion compared with the prior exam. Unchanged large pericardial effusion. 2. Persistent finding of mediastinal lymphadenopathy. While the region of consolidation at the RIGHT middle lobe is mildly decreased in size there is no significant interval change in soft tissue density lesions at the LEFT lower lobe with dominant lesion encasing the segmental basilar segment airways and pulmonary arteries. Pulmonary neoplasm should be considered. Consider bronchoscopy directed to the LEFT lower lobe basilar segmental airways.
[2016-09-12] MEDS: Insulin GLARGINE(*) 1 UNITS UNIT SUBCUT SCH (21:12)
[2016-09-12] MEDS: HYDROcodone/ACETAMIN 5-325 MG* 1 TAB PO PRN (21:50)
[2016-09-12] MEDS: Diltiazem TAB* 30 MG PO SCH (23:00)
[2016-09-13] MEDS: Insulin LISPRO* 1 UNITS UNIT SUBCUT SCH ×3 (07:26→16:30)
[2016-09-13] MEDS: Furosemide IV* 10 MG/ML 10 ML VIAL (100 MG) IV SCH (08:01)
[2016-09-13] MEDS: Amoxicillin/Clavulanate TAB* 875 MG PO SCH (08:01)
[2016-09-13] MEDS: Aspirin EC Low Dose* 81 MG TAB.EC PO SCH (08:01)
[2016-09-13] MEDS: Diltiazem CD CAP* 120 MG PO SCH (08:01)
[2016-09-13] MEDS: Benzonatate CAP* 100 MG PO SCH ×2 (08:01→13:05)
[2016-09-13] MEDS: Mometasone/Formoter 200/5 MDI INH SCH ×2 (08:23→19:46)
[2016-09-13 16:11] VITALS: BP 135/70
[2016-09-13] MEDS ORDERED: ALPRAZolam TAB* 0.5 MG PO PRN (17:07)
--- NOTE | 2016-09-13 17:19 | TRS ---
DISCHARGE/TRANSFER SUMMARY: DATE OF ADMISSION: 09/11/16 DATE OF DISCHARGE/TRANSFER: 09/13/16 ADMISSION DIAGNOSES: 1. Shortness of breath. 2. Congestive heart failure, status post pericardial window for pericardial effusion, pleural effusions. 3. Mediastinal lymphadenopathy. 4. Type 2 diabetes. 5. Atrial fibrillation. 6. Hypertension. DISCHARGE/TRANSFER DIAGNOSES: 1. Shortness of breath. 2. Congestive heart failure, status post pericardial window for pericardial effusion, pleural effusions. 3. Mediastinal lymphadenopathy. 4. Type 2 diabetes. 5. Atrial fibrillation. 6. Hypertension. HOSPITAL COURSE: The patient is a 65-year-old gentleman recently transferred from [facility] to [facility] for pericardial window. At that time, the patient had a large pericardial effusion and pericardiocentesis was attempted, but was unsuccessful in alleviating the patient's distress. He went to [facility] where he did have a pericardial window. At that time, he did significantly better and was breathing much better. So, he was discharged home for an outpatient workup of his pulmonary masses and pleural effusions. Unfortunately, the patient, within several days of returning home, became short of breath again. It was not entirely clear as to the etiology of the shortness of breath. It was thought it could be some heart failure as he did put on some weight and did have quite a bit of edema as well. Diuresis was attempted and he did lose a few pounds, but was still increasingly short of breath. A repeat CAT scan showed that his large pericardial effusion had reaccumulated and in fact, he had more significant pleural effusions and the mass-like lesions had not changed. Because of the patient's significant shortness of breath and inability to tolerate the slightest bit of exertion, we placed a call to [facility], under the care of Dr. Rafael Davis. We discussed the situation and how it was probably a reasonable idea that after he had the pericardial window that he have further diagnostics done on his pulmonary lesions to determine the etiology of the effusion. Obviously, our main concern is there is a strong possibility of malignancy. PHYSICAL EXAMINATION ON THE DATE OF DISCHARGE: Well-developed, well-nourished gentleman, sitting up in bed, short of breath, but not in acute distress. Temperature 97.5 degrees, heart rate 89 beats per minute, respiratory rate 16 breaths per minute, pulse oximetry 95% on 2 L, blood pressure 130/74. HEENT: Normocephalic, atraumatic. Pupils are equal, round, and reactive to light. Moist mucous membranes. Neck: Supple. No JVD, bruits, palpable thyroid or lymphadenopathy. Chest: Diminished breath sounds bilaterally. Cardiovascular : S1 and S2 appreciated. Abdominal Exam: Positive bowel sounds in all 4 quadrants. Soft, nontender. Extremities: No cyanosis or clubbing, but +2 pitting edema. Neuro: Alert and oriented x3. Moves all extremities. Skin: No rashes or concerning lesions. STUDIES DONE WHILE IN THE HOSPITAL: 1. Chest x-ray, 09/10/16, impression: Small bilateral pleural effusion and bibasilar infiltrates. 2. Venous duplex, 09/11/16, impression: No evidence of DVT of either lower extremity present. Use of the calf vessels are limited due to edema. 3. Chest CT, 09/12/16, impression: Increased right and new left pleural effusion, compared with prior exam, unchanged. Large pericardial effusion, persistent finding of mediastinal lymphadenopathy. A region of consolidation of the right middle lobe, is mildly decreased on the left side. There is no significant interval change in soft tissue density lesions of the left lower lobe, with dominant lesions increasing with segmental basilar segment airways and pulmonary arteries. Pulmonary neoplasm should be considered. Consider bronchoscopy directed to the left lower lobe basilar segmental airways. DISCHARGE MEDICATIONS: 1. DuoNeb 1 nebulizer q.2 hours p.r.n. 2. Augmentin 875 twice a day. 3. Aspirin 81 mg daily. 4. Tessalon Perles 100 mg 3 times a day as needed. 5. Diltiazem CD 120 mg daily. 6. Diltiazem 30 mg daily. 7. Furosemide 40 mg IV daily. 8. Dickens 5/325 two tabs every 4 hours as needed. 9. Lantus insulin 20 units subcu daily. 10. Lispro insulin 6 units subcu a.c. 11. Dulera 2 puffs inhaled twice daily. Note the following home medications he is not receiving at this time: 1. Lisinopril 5 mg daily. 2. Glipizide 10 mg twice daily. 3. Metformin 1000 mg twice daily. 4. Coumadin 5 mg daily. 5. Diltiazem CD 180 mg daily. DISCHARGE/TRANSFER PLAN: The patient was transferred under the care of Dr. Davis. Again, we discussed that after his pericardial window if workup could be done concerning his pulmonary lesions to determine the etiology of the effusions , it will be quite helpful. TIME SPENT: Over 75 minutes were spent on this transfer summary, and more than 40 minutes of which was spent in direct [id number] contact with the patient, in evaluation, physical exam, counseling, and coordination of care. CC: Dr. Malcom Veronica, Cardiology; Dr. Josefa Rodriguez, Pulmonology; Dr. Deb Mcfadden * [id number]/[facility] #: [id number] [facility]
[2016-09-14 11:09] LABS: Rheumatoid Factor <15 IU/mL (<15)
--- NOTE | 2016-09-14 22:49 | ECHO ---
Patient: [facility] Rec#: [id number] : 1950 Date: 09/11/2016 Age: 65y Weight: kg / NaN lbs Sex: M Room#: 432-01 Admit Date#: 09/10/2016 Type: Inpatient Referring: Fran Andrews MD Reading: Malcom Veronica MD Photographic Equipment Assembler: Mario Baltazar RDCS Transthoracic Echocardiogram Indication: S/P pericardial window BP: 116/65 HR: 86 Rhythm: NSR Findings History: a.fib,CVA,DM,HTN,small plueral effusion,former smoker Technical Comments: The study is technically difficult. Completed 1015 The study is technically limited due to poor acoustic windows. The study is technically limited due to poor parasternal windows. The study is technically limited due to patient body habitus. Left Ventricle: The left ventricular chamber size is normal. There is normal left ventricular systolic function. The estimated ejection fraction is 55-60%. The assessment of diastolic function is non-diagnostic. Left Atrium: The left atrium is moderately dilated. Right Ventricle: The right ventricle wall thickness is mildly increased. The right ventricular cavity size is normal. The right ventricular global systolic function is normal. Right Atrium: The right atrial cavity size is normal. Aortic Valve: The aortic valve structure is not well visualized.Cannot exclude a bicuspid valve. There is a trace of aortic regurgitation. There is no evidence of aortic stenosis. Mitral Valve: The mitral valve leaflets are mildly thickened. There is mild mitral regurgitation. There is no evidence of mitral stenosis. Tricuspid Valve: The tricuspid valve appears normal in structure and function. There is no evidence of tricuspid valve regurgitation. Pulmonic Valve: The pulmonic valve structure is not well visualized. Pericardium: A pericardial effusion is visualized.Measurements in cm: KINGA 1.9 S, 1.6 diastole. PSA 1.3 cm systole, 1.4 diastole. Apical 1.5 cm systole, 1.4 diastole. There is a moderate pericardial effusion.More prominent anteriorly and apically. Fibrinous strands and implants noted. No evidence of hemodynamic compromise by 2d or doppler. The pericardial effusion is fibrinous. Aorta: There is no dilatation of the ascending aorta. The aortic arch is not well visualized. There is no dilation of the aortic root. Pulmonary Artery: The main pulmonary artery is not well visualized. Venous: The inferior vena cava is dilated. There is a greater than 50% respiratory change in the inferior vena cava dimension. Conclusions The study is technically limited due to patient body habitus. There is normal left ventricular systolic function. The estimated ejection fraction is 55-60%. The left atrium is mildly dilated. The left atrium is moderately dilated. The right ventricle wall thickness is mildly increased. The aortic valve structure is not well visualized. Cannot exclude a bicuspid valve. There is a trace of aortic regurgitation. There is mild mitral regurgitation. There is a moderate pericardial effusion. More prominent anteriorly and apically. Fibrinous strands and implants noted. No evidence of hemodynamic compromise by 2d or doppler. Interval decrease in the pericardial effusion size and extent c/t 2.2017. The RV appears to be filling better this time. Measurements Name Value Normal Range RVIDd (AP) 2D 1.9 cm (0.9 - 2.6) RVDdMajor (2D) 2.7 cm (2.2 - 4.4) RAd ISD 4CH 6.4 cm (3.4 - 4.9) RA (A4C)W 3.8 cm (2.9 - 4.6) IVSd (2D) 0.8 cm (0.6 - 1) LVPWd (2D) 0.6 cm (0.6 - 1) LVIDd (2D) 5.8 cm (3.6 - 5.4) LVIDs (2D) 4.4 cm - LV FS (2D) 24 % (25 - 45) Aortic Annulus 1.8 cm (1.4 - 2.6) Ao root diameter (2D) 3.2 cm (2.1 - 3.5) Ascending Ao 3.4 cm (2.1 - 3.4) LA dimension (AP) 2D 4.5 cm (2.3 - 3.8) LAd ISD 4CH 8.1 cm (2.9 - 5.3) LA ISD 4CH W 4.3 cm (2.5 - 4.5) Name Value Normal Range LA ESV SP 4CH (A/L) 53 ml - LA ESV SP 2CH (A/L) 66 ml - LA ESV BP (A/L) 65 ml - LA ESV BP (A/L) index 33.21 ml/m2 - LA ESV SP 4CH (MOD) 49 ml - LA ESV SP 2CH (MOD) 68 ml - Name Value Normal Range MV E-wave Vmax 0.6 m/sec - MV deceleration time 162 msec - MV A-wave Vmax 0.59 m/sec - MV E:A ratio 1 ratio - Name Value Normal Range LVOT diameter 2 cm - LVOT Vmax 0.6 m/sec - Name Value Normal Range IVC diameter 2.1 cm - Name Value Normal Range PV Vmax 0.6 m/sec -
== END 2016-09-13 18:20 | disposition short-term general hospital (02) | DRG 314 ==
LOC: ED 22:03 → MEDTELE 09-11 00:34
PROVIDERS: ADMIT Hospitalist; ATTEND Internal Medicine
DX: I31.3 Pericardial effusion (noninflammatory) (principal); I50.31 Acute diastolic (congestive) heart failure; J90 Pleural effusion, not elsewhere classified; I48.91 Unspecified atrial fibrillation; E87.1 Hypo-osmolality and hyponatremia; Z86.73 Personal history of transient ischemic attack (TIA), and cerebral infarction without residual deficits; E11.9 Type 2 diabetes mellitus without complications; Z87.891 Personal history of nicotine dependence; Z83.3 Family history of diabetes mellitus; Z81.1 Family history of alcohol abuse and dependence; G89.29 Other chronic pain; M54.9 Dorsalgia, unspecified; Z80.0 Family history of malignant neoplasm of digestive organs; I11.0 Hypertensive heart disease with heart failure; R91.8 Other nonspecific abnormal finding of lung field; J44.9 Chronic obstructive pulmonary disease, unspecified; F41.0 Panic disorder [episodic paroxysmal anxiety]; R09.02 Hypoxemia; E66.9 Obesity, unspecified; R59.1 Generalized enlarged lymph nodes; Z79.82 Long term (current) use of aspirin; Z79.4 Long term (current) use of insulin; Z86.718 Personal history of other venous thrombosis and embolism; Z68.30 Body mass index [BMI] 30.0-30.9, adult
CPT/HCPCS: 36415; 71010; 71260; 80048; 80053; 82164; 82803; 83516; 83880; 84484; 85025; 85610; 85652; 85730; 86038; 86141; 86225; 86431; 87040; 93005; 93306; 93970; 94640; 94760; 94762; A9270-GY; J1940; J2060; Q9967